=== PATIENT | female | born 1985 | race Caucasian/White ===

== ENCOUNTER 2023-12-02 14:19 | Inpatient (IN) | payer OTHER ==
--- NOTE | 2023-12-02 14:45 | ED ---
General Adult HPI - General Source: patient, family, RN notes reviewed Mode of arrival: wheelchair Limitations: no limitations <Marcelle Martin - Last Filed: 12/02/23 14:44> <Arik Soto - Last Filed: 12/02/23 21:20> - General Chief complaint: Shortness of Breath Stated complaint: congested and vomiting Time Seen by Provider: 12/02/23 14:44 - History of Present Illness Initial comments: 38-year-old female presents to the emergency department for evaluation of cough, congestion x 2 days. Family with patient notes that she has been wheezing and more short of breath than usual. (Marcelle Martin) I did review the above information I do agree that the patient has had a cough and congestion for the past 2 days perhaps even longer she been noted to be wheezing and more short of breath than usual. No overt fevers chills sweats there is a question whether she may have a UTI there was some blood noted in her diaper. Patient does not have menses. (Arik Soto) - Related Data Allergies Allergy/AdvReac Type Severity Reaction Status Date / Time No Known Allergies Allergy Verified 12/02/23 14:25 Review of Systems ROS Other: All systems not noted in ROS Statement are negative. <Marcelle Martin - Last Filed: 12/02/23 14:44> ROS Other: All systems not noted in ROS Statement are negative. <Arik Soto - Last Filed: 12/02/23 21:20> ROS Statement: Those systems with pertinent positive or pertinent negative responses have been documented in the HPI. Past Medical History Additional Past Medical History / Comment(s): delep[mentally delayed chronic bronchitis Additional Past Surgical History / Comment(s): oral surgery <Marcelle Martin - Last Filed: 12/02/23 14:44> General Exam Limitations: no limitations <Marcelle Martin - Last Filed: 12/02/23 14:44> <Arik Soto - Last Filed: 12/02/23 21:20> - General Exam Comments Initial Comments: Visual Physical Exam Vital signs reviewed General: Well-appearing, nontoxic, no acute distress. Head: Normocephalic, atraumatic Eyes: PERRLA, EOMI ENT: Airway patent Chest: Nonlabored breathing Skin: No visual rash, normal skin tone Neuro: Alert and oriented 3 Musculoskeletal: No gross abnormalities (Marcelle Martin) This is an awake and alert female who demonstrates stigmata of developmental delay she is awake and alert in no acute distress. HEENT exam normocephalic atraumatic PERRL and white counts have a clear oropharynx reveals dry oral mucosa nonspecific findings on the examination of the ears nose and throat otherwise. Neck supple no stridor JVD or bruits chest lungs reveal diminished breath sounds bilaterally no definitive crepitation or rales or rhonchi. Heart regular on my initial examination heart rate 105. Abdomen soft nontender no pulsatile masses. Extremities bilaterally present and symmetric. Integument a ppears to be intact neuroexam cranial nerves II through XII are grossly intact patient does again demonstrate developmental delay. (Arik Soto) Course Vital Signs 12/02/23 12/02/23 12/02/23 14:22 15:56 16:15 Temperature 98.8 F Pulse Rate 119 H 112 H 106 H Respiratory 26 H Rate Blood Pressure 113/57 O2 Sat by Pulse 90 L Oximetry 12/02/23 12/02/23 12/02/23 17:10 17:20 18:30 Temperature 101.1 F H Pulse Rate Respiratory 24 Rate Blood Pressure O2 Sat by Pulse 89 L Oximetry 12/02/23 12/02/23 19:40 21:06 Temperature 99.4 F Pulse Rate 120 H 108 H Respiratory 30 H 24 Rate Blood Pressure 112/91 O2 Sat by Pulse 91 L 93 L Oximetry EKG Findings - EKG Results: EKG: interpreted by ERMD (Sinus tachycardia rate 116 LA interval 135 QRS duration 78 QT/QTc 268/337) <Arik Soto - Last Filed: 12/02/23 21:20> Medical Decision Making <Marcelle Martin - Last Filed: 12/02/23 14:44> - Lab Data Result diagrams: 12/02/23 18:31 12/02/23 17:11 <Arik Soto - Last Filed: 12/02/23 21:20> - Medical Decision Making Quick note preformed and electronically signed by Marcelle Martin PA-C (Ramya Martin) I did discuss findings with the patient's family also with Dr. Power the patient demonstrates evidence of UTI evidence of right lower lobe infiltrate on chest x-ray and CT no evidence of PE however noted. Patient will be admitted with pulmonary medicine consultation. Patient has seen Dr. Hermosillo in the past. Was pt. sent in by a medical professional or institution (, ERICKA, FIRE EXTINGUISHER MECHANIC, urgent care, hospital, or fdc...) When possible be specific @ -No Did you speak to anyone other than the patient for history (EMS, parent, family, police, friend...)? What history was obtained from this source @ -Family Did you review nursing and triage notes (agree or disagree)? Why? @ -I reviewed and agree with nursing and triage notes Were old charts reviewed (outside hosp., previous admission, EMS record, old EKG, old radiological studies, urgent care reports/EKG's, fdc records)? Report findings @ -Old charts were reviewed Differential Diagnosis (chest pain, altered mental status, abdominal pain women, abdominal pain men, vaginal bleeding, weakness, fever, dyspnea, syncope, headache, dizziness, GI bleed, back pain, seizure, CVA, palpatations, mental health, musculoskeletal)? @ -Camila, UTI EKG interpreted by me (3pts min.). @ -As above EKG interpreted by me sinus tachycardia rate of 116 parable 135 QRS duration 78 QT/QTc 268/[address] configuration the marked amount of artifact present X-rays interpreted by me (1pt min.). @ -Chest x-ray interpreted by me increased basilar markings especially on the right CT interpreted by me (1pt min.). @ -ET angio of the chest no evidence of PE there is increased right lower lobe markings however pneumonia considered U/S interpreted by me (1pt. min.). @ -None done What testing was considered but not performed or refused? (CT, X-rays, U/S, labs)? Why? @ -None What meds were considered but not given or refused? Why? @ -None Did you discuss the management of the patient with other professionals (prof reilly i.e. , ERICKA, FI[employer] EXTINGUISHER MECHANIC, lab, RT, psych nurse, social media strategist, ear machine operator, teacher, landcare officer, disability case manager)? Give summary @ -Dr. Power Was smoking cessation discussed for >3mins.? @ -No Was critical care preformed (if so, how long)? @ -No Were there social determinants of health that impacted care today? How? (Homelessness, low income, unemployed, alcoholism, drug addiction, transportation, low edu. Level, literacy, decrease access to med. care, [facility], rehab)? @ -Developmental delay Was there de-escalation of care discussed even if they declined (Discuss DNR or withdrawal of care, Hospice)? DNR status @ -No What co-morbidities impacted this encounter? (DM, HTN, Smoking, COPD, CAD, Ca ncer, CVA, ARF, Chemo, Hep., AIDS, mental health diagnosis, sleep apnea, morbid obesity)? @ -History of developmental delay, chronic bronchitis Was patient admitted / discharged? Hospital course, mention meds given and route, prescriptions, significant lab abnormalities, going to OR and other perti nent info. @ -Hospital course was admitted Undiagnosed new problem with uncertain prognosis? @ -No Drug Therapy requiring intensive monitoring for toxicity (Heparin, Nitro, Insulin, Cardizem)? @ -No Were any procedures done? @ -No Diagnosis/symptom? @ -Acute bronchospasm, chronic bronchitis, dyspnea, right lower lobe pneumonia, UTI Acute, or Chronic, or Acute on Chronic? @ -Acute Uncomplicated (without systemic symptoms) or Complicated (systemic symptoms)? @ -Complicated Side effects of treatment? @ -No Exacerbation, Progression, or Severe Exacerbation? @ -No Poses a threat to life or bodily function? How? (Chest pain, [place], [place], pneumonia, PE, COPD, DKA, ARF, appy, cholecystitis, CVA, Diverticulitis, Homicidal, Suicidal, threat to staff... and all critical care pts) @ -Potential, bronchospasm, bronchitis, UTI, pneumonia (Arik Soto) - Lab Data Lab Results 12/02/23 12/02/23 12/02/23 Range/Units 14:29 17:11 17:11 WBC (3.8-10.6) k/uL RBC (3.80-5.40) m/uL Hgb (11.4-16.0) gm/dL Hct (34.0-46.0) % MCV (80.0-100.0) fL MCH (25.0-35.0) pg MCHC (31.0-37.0) g/dL RDW (11.5-15.5) % Plt Count (150-450) k/uL MPV Neutrophils % % Lymphocytes % % Monocytes % % Eosinophils % % Basophils % % Neutrophils # (1.3-7.7) k/uL Lymphocytes # (1.0-4.8) k/uL Monocytes # (0-1.0) k/uL Eosinophils # (0-0.7) k/uL Basophils # (0-0.2) k/uL D-Dimer (<0.60) mg/L FEU Sodium 140 (137-145) mmol/L Potassium 3.5 (3.5-5.1) mmol/L Chloride 102 (98-107) mmol/L Carbon Dioxide 28 (22-30) mmol/L Anion Gap 10 mmol/L BUN 15 (7-17) mg/dL Creatinine 0.98 (0.52-1.04) mg/dL Est GFR (CKD-EPI)AfAm 86 (>60 ml/min/1.73 sqM) Est GFR (CKD-EPI)NonAf 74 (>60 ml/min/1.73 sqM) Glucose 115 H (74-99) mg/dL Calcium 8.6 (8.4-10.2) mg/dL Magnesium 1.9 (1.6-2.3) mg/dL Total Bilirubin 0.6 (0.2-1.3) mg/dL AST 82 H (14-36) U/L ALT 90 H (4-34) U/L Alkaline Phosphatase 116 (38-126) U/L Creatine Kinase 99 (30-135) U/L Troponin I <0.012 (0.000-0.034) ng/mL NT-Pro-B Natriuret Pep 215 pg/mL Total Protein 6.2 L (6.3-8.2) g/dL Albumin 3.5 (3.5-5.0) g/dL Urine Color Urine Appearance (Clear) Urine pH (5.0-8.0) Ur Specific [place] (1.001-1.035) Urine Protein (Negative) Urine Glucose (UA) (Negative) Urine Ketones (Negative) Urine Blood (Negative) Urine Nitrite (Negative) Urine Bilirubin (Negative) Urine Urobilinogen (<2.0) mg/dL Ur Leukocyte Esterase (Negative) Urine RBC (0-5) /hpf Urine WBC (0-5) /hpf Urine WBC Clumps (None) /hpf Urine Bacteria (None) /hpf Urine Mucus (None) /hpf Urine HCG, Qual (Not Detectd) Influenza Type A (PCR) Not Detected (Not Detectd) Influenza Type B (PCR) Not Detected (Not Detectd) RSV (PCR) Not Detected (Not Detectd) SARS-CoV-2 (PCR) Not Detected (Not Detectd) 12/02/23 12/02/23 12/02/23 Range/Units 17:11 17:22 17:22 WBC (3.8-10.6) k/uL RBC (3.80-5.40) m/uL Hgb (11.4-16.0) gm/dL Hct (34.0-46.0) % MCV (80.0-100.0) fL MCH (25.0-35.0) pg MCHC (31.0-37.0) g/dL RDW (11.5-15.5) % Plt Count (150-450) k/uL MPV Neutrophils % % Lymphocytes % % Monocytes % % Eosinophils % % Basophils % % Neutrophils # (1.3-7.7) k/uL Lymphocytes # (1.0-4.8) k/uL Monocytes # (0-1.0) k/uL Eosinophils # (0-0.7) k/uL Basophils # (0-0.2) k/uL D-Dimer 1.34 H (<0.60) mg/L FEU Sodium (137-145) mmol/L Potassium (3.5-5.1) mmol/L Chloride (98-107) mmol/L Carbon Dioxide (22-30) mmol/L Anion Gap mmol/L BUN (7-17) mg/dL Creatinine (0.52-1.04) mg/dL Est GFR (CKD-EPI)AfAm (>60 ml/min/1.73 sqM) Est GFR (CKD-EPI)NonAf (>60 ml/min/1.73 sqM) Glucose (74-99) mg/dL Calcium (8.4-10.2) mg/dL Magnesium (1.6-2.3) mg/dL Total Bilirubin (0.2-1.3) mg/dL AST (14-36) U/L ALT (4-34) U/L Alkaline Phosphatase (38-126) U/L Creatine Kinase (30-135) U/L Troponin I (0.000-0.034) ng/mL NT-Pro-B Natriuret Pep pg/mL Total Protein (6.3-8.2) g/dL Albumin (3.5-5.0) g/dL Urine Color Yellow Urine Appearance Cloudy H (Clear) Urine pH 6.5 (5.0-8.0) Ur Specific [place] 1.020 (1.001-1.035) Urine Protein 2+ H (Negative) Urine Glucose (UA) Negative (Negative) Urine Ketones 1+ H (Negative) Urine Blood Small H (Negative) Urine Nitrite Positive H (Negative) Urine Bilirubin Negative (Negative) Urine Urobilinogen 6.0 (<2.0) mg/dL Ur Leukocyte Esterase Large H (Negative) Urine RBC 19 H (0-5) /hpf Urine WBC >182 H (0-5) /hpf Urine WBC Clumps Occasional H (None) /hpf Urine Bacteria Many H (None) /hpf Urine Mucus Few H (None) /hpf Urine HCG, Qual Not Detected (Not Detectd) Influenza Type A (PCR) (Not Detectd) Influenza Type B (PCR) (Not Detectd) RSV (PCR) (Not Detectd) SARS-CoV-2 (PCR) (Not Detectd) 12/02/23 Range/Units 18:31 WBC 12.0 H (3.8-10.6) k/uL RBC 4.54 (3.80-5.40) m/uL Hgb 13.0 (11.4-16.0) gm/dL Hct 41.3 (34.0-46.0) % MCV 90.8 (80.0-100.0) fL MCH 28.6 (25.0-35.0) pg MCHC 31.5 (31.0-37.0) g/dL RDW 13.3 (11.5-15.5) % Plt Count 413 (150-450) k/uL MPV 7.6 Neutrophils % 69 % Lymphocytes % 24 % Monocytes % 4 % Eosinophils % 0 % Basophils % 0 % Neutrophils # 8.3 H (1.3-7.7) k/uL Lymphocytes # 2.9 (1.0-4.8) k/uL Monocytes # 0.5 (0-1.0) k/uL Eosinophils # 0.0 (0-0.7) k/uL Basophils # 0.0 (0-0.2) k/uL D-Dimer (<0.60) mg/L FEU Sodium (137-145) mmol/L Potassium (3.5-5.1) mmol/L Chloride (98-107) mmol/L Carbon Dioxide (22-30) mmol/L Anion Gap mmol/L BUN (7-17) mg/dL Creatinine (0.52-1.04) mg/dL Est GFR (CKD-EPI)AfAm (>60 ml/min/1.73 sqM) Est GFR (CKD-EPI)NonAf (>60 ml/min/1.73 sqM) Glucose (74-99) mg/dL Calcium (8.4-10.2) mg/dL Magnesium (1.6-2.3) mg/dL Total Bilirubin (0.2-1.3) mg/dL AST (14-36) U/L ALT (4-34) U/L Alkaline Phosphatase (38-126) U/L Creatine Kinase (30-135) U/L Troponin I (0.000-0.034) ng/mL NT-Pro-B Natriuret Pep pg/mL Total Protein (6.3-8.2) g/dL Albumin (3.5-5.0) g/dL Urine Color Urine Appearance (Clear) Urine pH (5.0-8.0) Ur Specific [place] (1.001-1.035) Urine Protein (Negative) Urine Glucose (UA) (Negative) Urine Ketones (Negative) Urine Blood (Negative) Urine Nitrite (Negative) Urine Bilirubin (Negative) Urine Urobilinogen (<2.0) mg/dL Ur Leukocyte Esterase (Negative) Urine RBC (0-5) /hpf Urine WBC (0-5) /hpf Urine WBC Clumps (None) /hpf Urine Bacteria (None) /hpf Urine Mucus (None) /hpf Urine HCG, Qual (Not Detectd) Influenza Type A (PCR) (Not Detectd) Influenza Type B (PCR) (Not Detectd) RSV (PCR) (Not Detectd) SARS-CoV-2 (PCR) (Not Detectd) Disposition <Marcelle Martin - Last Filed: 12/02/23 14:44> Time of Disposition: 20:30 Decision Date: 12/02/23 Decision Time: 20:30 <Arik Soto - Last Filed: 12/02/23 21:20> Clinical Impression: Right lower lobe pneumonia, Acute urinary tract infection, Dyspnea, Febrile illness, acute, Hypoxemia Disposition: ADMITTED IP TO THIS [facility] Condition: Fair Referrals: Genevieve Brooks MD [Primary Care Provider] - 1-2 days
--- NOTE | 2023-12-02 15:12 | XR ---
EXAMINATION TYPE: XR chest 2V DATE OF EXAM: 12/02/2023 3:07 PM CLINICAL INDICATION:Female, 38 years old with history of short of breath; PHH COMPARISON: None TECHNIQUE: XR chest 2V Frontal and lateral views of the chest. FINDINGS: Lungs/Pleura: Bibasilar hazy airspace opacities are appreciated. No evidence of pneumothorax or pleur al effusion Pulmonary vascularity: Unremarkable. Heart/mediastinum: Cardiomediastinal silhouette is unremarkable. Musculoskeletal: No acute osseous pathology. IMPRESSION: Bibasilar airspace disease, most likely related to infectious/inflammatory process.
[2023-12-02] MEDS: IPRATROPIUM-ALBUTEROL 3 ML NEB INHALATION STA (15:56)
[2023-12-02 18:02] LABS: ALT 90 U/L (4-34); AST 82 U/L (14-36); African American GFR (CKD) 86 (>60 ml/min/1.73 sqM); Albumin 3.5 g/dL (3.5-5.0); Alkaline Phosphatase 116 U/L (38-126); Anion Gap 10 mmol/L; Blood Urea Nitrogen 15 mg/dL (7-17); Calcium 8.6 mg/dL (8.4-10.2); Carbon Dioxide 28 mmol/L (22-30); Chloride 102 mmol/L (98-107); Creatine Kinase 99 U/L (30-135); Glucose 115 mg/dL (74-99); Magnesium 1.9 mg/dL (1.6-2.3); Non-African American GFR(CKD) 74 (>60 ml/min/1.73 sqM); Potassium 3.5 mmol/L (3.5-5.1); Sodium 140 mmol/L (137-145); Total Bilirubin 0.6 mg/dL (0.2-1.3); Total Protein 6.2 g/dL (6.3-8.2)
[2023-12-02 18:04] LABS: Appearance,Urine Cloudy (Clear); Bacteria,Urine Many /hpf; Bilirubin,Urine Negative (Negative); Blood,Urine Small (Negative); Color,Urine Yellow; Glucose,Urine (UA) Negative (Negative); Ketones,Urine 1+ (Negative); Leukocyte Esterase,Urine Large (Negative); Mucus,Urine Few /hpf; Nitrite,Urine Positive (Negative); PH, Urine 6.5 (5.0-8.0); Protein,Urine 2+ (Negative); RBC,Urine 19 /hpf (0-5); WBC,Urine >182 /hpf (0-5)
[2023-12-02 18:07] LABS: NT-Pro-B-Type Natriuretic Pept 215 pg/mL
[2023-12-02 18:52] LABS: Basophils % (A) 0 %; Eosinophils % (A) 0 %; HCT 41.3 % (34.0-46.0); Lymphocytes # (A) 2.9 k/uL (1.0-4.8); Lymphocytes % (A) 24 %; MCH 28.6 pg (25.0-35.0); MCHC 31.5 g/dL (31.0-37.0); MCV 90.8 fL (80.0-100.0); Mean Platelet Volume 7.6; Monocytes # (A) 0.5 k/uL (0-1.0); Monocytes % (A) 4 %; Neutrophils # (A) 8.3 k/uL (1.3-7.7); Neutrophils % (A) 69 %; Platelet Count 413 k/uL (150-450); RBC 4.54 m/uL (3.80-5.40); RDW 13.3 % (11.5-15.5)
[2023-12-02] MEDS: ACETAMINOPHEN TAB 500 MG TAB PO STA (19:42)
[2023-12-02] MEDS: cefTRIAXone IN SWFI 1,000 MG/10 ML SYRINGE IVP STA (20:02)
--- NOTE | 2023-12-02 20:49 | CT ---
EXAMINATION TYPE: CT angio chest CT DLP: 166.2 mGycm, Automated exposure control for dose reduction was used. DATE OF EXAM: 12/02/2023 7:36 PM COMPARISON: Same day chest x-ray CLINICAL INDICATION:Female, 38 years old with history of PE suspected; SOB, positive dimer TECHNIQUE/CONTRAST: CTA scan of the thorax is performed with IV Contrast, patient injected with 45 cc mL of Isovue 300, M IP images are created and reviewed these are created on a separate workstation.. FINDINGS: There is adequate contrast bolus and timing. Examination is degraded by motion artifact. PULMONARY ARTERIES: There is no evidence for a filling defect within the pulmonary vasculature to sug gest acute pulmonary embolism. Pulmonary trunk is normal in size. Trunk measures 2.1 CM. HEART: Mild cardiomegaly. No appreciable coronary calcifications. Pericardial fat is prominent witho ut pericardial effusion. AORTA: Minimal atherosclerotic disease. Ascending aorta is 2.6 CM, tapering along the arch. Descendi ng is 1.4 CM. Aorta is considered mildly ectatic in its ascending segment. LOWER NECK: No significant findings. Thyroid not well seen. MEDIASTINUM: No evidence of mediastinal lymph node enlargement. SOFT TISSUES/LYMPH NODES: Unremarkable chest wall soft tissues. No axillary adenopathy. LUNGS/ PLEURA: There is mosaic attenuation of the lungs in some areas may suggest air trapping. There are reticulonodular opacities and tree-in-bud pattern throughout much of the right lung, with a more consolidative small opacity seen in the right lung base posteromedially; the superior aspect of this has a more focal nodular appearance measuring up to 2.1 cm axially. There are lesser tree-in-bud opa cities scattered throughout the left lung, and mild reticulonodular infiltrate in the left lower lobe . No sizable effusion or pneumothorax. AIRWAY: Central airways appear patent. The right lobar branches taper distally and disappear in some areas, likely due to bronchial secretions/debris. Similar findings on the left. MUSCULOSKELETAL: Overall mild/moderate degenerative changes of the spine with a moderately prominent levocurvature throughout and straightening of the normal kyphosis. Mild superior end plate height los s at T8 and T10, appearance favors chronic without fracture lucency seen. Heterogeneous appearance th roughout the T9 vertebral body without evidence of compression fracture. Otherwise, no lytic/blastic lesions are seen. UPPER ABDOMEN: Fairly symmetric phase enhancement of the kidneys and possible small sliding hiatal he rnia. No acute abnormality. Mildly thickened adrenals. IMPRESSION: 1. No evidence of pulmonary embolism. 2. Patchy consolidative opacities at the right lung base, plus scattered tree-in-bud opacities throu ghout the lungs bilaterally, likely due to infectious/inflammatory process. Include TB and other infe ctious agents in the differential. 3. Heterogeneous appearance of the T9 vertebral body, of uncertain cause. Metastasis is possible. Co rrelation with history, MRI and/or bone scan may be of benefit. 4. Cardiomegaly without evidence of failure.
[2023-12-02] MEDS ORDERED: PNEUMONIA PROTOCOL UTILIZED 1 EACH MISC PO PRN (21:21)
[2023-12-02] MEDS: IPRATROPIUM-ALBUTEROL 3 ML NEB INHALATION PRN (21:35)
[2023-12-02] MEDS: SODIUM CHLORIDE 0.9% 1,000 ML IV SCH (21:39)
[2023-12-02] MEDS: AZITHROMYCIN 500 MG in SODIUM CHLORIDE 0.9% 250 ML IVPB STA (21:40)
[2023-12-03] MEDS: QUEtiapine 25 MG TAB PO STA ×2 (05:51→09:15)
[2023-12-03] MEDS: ACETAMINOPHEN TAB 325 MG TAB PO PRN (09:15)
[2023-12-03] MEDS: HEPARIN SODIUM,PORCINE 5,000 UNIT/ML 1 ML VIAL SQ SCH (09:16)
[2023-12-03] MEDS: AZITHROMYCIN 500 MG TAB PO SCH (09:17)
[2023-12-03] MEDS: FAMOTIDINE 20 MG/2 ML VIAL IV SCH (09:18)
[2023-12-03] MEDS ORDERED: NALOXONE 0.4 MG/ML 1 ML VIAL IV PRN (11:01)
--- NOTE | 2023-12-03 11:14 | XR ---
EXAMINATION TYPE: XR chest 1V portable DATE OF EXAM: 12/03/2023 COMPARISON: 12/02/2023 INDICATION: Pneumonia TECHNIQUE: Single frontal view of the chest is obtained. FINDINGS: The heart size is mildly prominent. The pulmonary vasculature is normal. Some mild underlying alveolar type infiltrate may be present. Follow-up is recommended. IMPRESSION: 1. Persistence of punctate alveolar type infiltrate. Continued Follow-up is recommended.
[2023-12-03 12:01] LABS: Basophils % (A) 0 %; Eosinophils % (A) 0 %; HGB 11.5 gm/dL (11.4-16.0); Lymphocytes # (A) 2.6 k/uL (1.0-4.8); Lymphocytes % (A) 26 %; MCH 29.5 pg (25.0-35.0); MCHC 32.1 g/dL (31.0-37.0); MCV 91.9 fL (80.0-100.0); Monocytes # (A) 0.4 k/uL (0-1.0); Monocytes % (A) 4 %; Neutrophils # (A) 6.7 k/uL (1.3-7.7); Neutrophils % (A) 67 %; Platelet Count 337 k/uL (150-450); RBC 3.92 m/uL (3.80-5.40); RDW 13.3 % (11.5-15.5); WBC 9.9 k/uL (3.8-10.6)
[2023-12-03] MEDS: LORazepam 2 MG/ML INJ IV PRN (12:16)
[2023-12-03] MEDS: PIPERACILLIN-TAZOBACTAM 3.375 GM in SODIUM CHLORIDE 0.9% 100 ML IVPB SCH (12:16)
[2023-12-03 12:36] LABS: ALT 58 U/L (4-34); AST 40 U/L (14-36); African American GFR (CKD) >90 (>60 ml/min/1.73 sqM); Albumin/Globulin Ratio 1.2; Alkaline Phosphatase 98 U/L (38-126); Anion Gap 8 mmol/L; Blood Urea Nitrogen 14 mg/dL (7-17); Calcium 8.4 mg/dL (8.4-10.2); Carbon Dioxide 25 mmol/L (22-30); Chloride 110 mmol/L (98-107); Globulin 2.5 g/dL; Glucose 165 mg/dL (74-99); Non-African American GFR(CKD) 80 (>60 ml/min/1.73 sqM); Potassium 3.3 mmol/L (3.5-5.1); Sodium 143 mmol/L (137-145); Total Bilirubin 0.4 mg/dL (0.2-1.3); Total Protein 5.5 g/dL (6.3-8.2)
[2023-12-03 12:43] LABS: HCG,Qualitative Serum Not Detected
--- NOTE | 2023-12-03 13:02 | P.HPIM ---
History of Present Illness H&P Date: 12/03/23 Chief Complaint: Shortness of breath, * 38-year-old patient with past medical history significant for developmental delay, presents to the emergency department with complaints of cough, congestion, shortness of breath and wheezing. * Initiated in ER including a CT chest which was negative for pulm embolism however patchy consolidation and opacity was noted at the right lung base. * Workup initiated in ER included CBC showed WBC count of 12,000, platelet count of 413, D-dimer 1.34 serum chemistry showed sodium 140 potassium 3.5 chloride 102 BUN 15 creatinine 0.98 glucose 115 ALT of 90 AST of 82 * Procalcitonin 0.16 * Urinalysis obtained showed significant amount of WBC many bacteria urine test negative * Patient tested negative for influenza RSV and COVID * she admitted to medical floor for treatment of pneumonia and UTI * History obtained from parents at bedside REVIEW OF SYSTEMS: Cough, wheezing, shortness of breath, agitation disorientation CONSTITUTIONAL: No fever, no malaise, no fatigue. CARDIOVASCULAR: No chest pain, orthopnea, PND, no palpitations, no syncope. PULMONARY: Cough, wheezing, shortness of breath GASTROINTESTINAL: No diarrhea, no nausea, no vomiting, no abdominal pain. NEUROLOGICAL: No headaches, no weakness, no numbness. HEMATOLOGICAL: Denies any bleeding or petechiae. GENITOURINARY: Denies any burning micturition, frequency, or urgency. MUSCULOSKELETAL/RHEUMATOLOGICAL: Denies any joint pain, swelling, or any muscle pain. PHYSICAL EXAMINATION: GENERAL: The patient is alert and oriented x o, ill appearance, agitated, disoriented HEENT: Pupils are round and equally reacting to light. EOMI. CARDIOVASCULAR: S1 and S2 present. Tachycardia PULMONARY: Expiratory wheezes audible, patient disoriented agitated tachypneic ABDOMEN: Soft, nontender, nondistended, normoactive bowel sounds. No palpable organomegaly. MUSCULOSKELETAL: No joint swelling or deformity. EXTREMITIES: No cyanosis, clubbing, or pedal edema. NEUROLOGICAL: Disoriented Past Medical History Past Medical History: Thyroid Disorder Additional Past Medical History / Comment(s): delep[mentally delayed, chronic bronchitis, hypothyroid History of Any Multi-Drug Resistant Organisms: None Reported Additional Past Surgical History / Comment(s): oral surgery Past Anesthesia/Blood Transfusion Reactions: No Reported Reaction Additional Psychological History / Comment(s): developmentally delayed Smoking Status: Never smoker - Past Family History Mother Family Medical History: No Reported History Medications and Allergies Home Medications Medication Instructions Recorded Confirmed Type Levothyroxine Sodium [Synthroid] 75 mcg PO DAILY 12/03/23 12/03/23 History Allergies Allergy/AdvReac Type Severity Reaction Status Date / Time No Known Allergies Allergy Verified 12/03/23 08:42 Physical Exam Vitals: Vital Signs Temp Pulse Pulse Resp BP BP Pulse Ox 12/03/23 09:16 117 H 12/03/23 08:00 101.0 F H 117 H 19 108/52 92 L 12/03/23 05:59 96 94 L 12/03/23 01:20 98.7 F 94 16 111/65 96 12/03/23 00:39 94 L 12/03/23 00:15 117 H 24 139/54 90 L 12/02/23 22:18 107 H 22 102/62 92 L 12/02/23 21:45 115 H 12/02/23 21:35 112 H 12/02/23 21:06 99.4 F 108 H 24 93 L 12/02/23 19:40 120 H 30 H 112/91 91 L 12/02/23 18:30 101.1 F H 12/02/23 17:20 24 12/02/23 17:10 89 L 12/02/23 16:15 106 H 12/02/23 15:56 112 H 12/02/23 14:22 98.8 F 119 H 26 H 113/57 90 L Intake and Output 12/02/23 12/03/23 12/03/23 22:59 06:59 14:59 Intake Total 600 Balance 600 Intake: Intake, IV Titration 600 Amount Sodium Chloride 0.9% 1, 600 000 ml @ 100 mls/hr IV . Q10H [facility] Rx#:[id number] Other: Voiding Method Diaper Diaper Incontinent Incontinent # Voids 1 Weight 43.091 kg Results CBC & Chem 7: 12/03/23 11:19 12/03/23 11:19 Labs: Abnormal Lab Results - Last 24 Hours (Table) 12/02/23 12/02/23 12/02/23 Range/Units 17:11 17:11 17:11 WBC (3.8-10.6) k/uL Neutrophils # (1.3-7.7) k/uL D-Dimer 1.34 H (<0.60) mg/L FEU Glucose 115 H (74-99) mg/dL AST 82 H (14-36) U/L ALT 90 H (4-34) U/L Total Protein 6.2 L (6.3-8.2) g/dL Procalcitonin 0.16 H (0.02-0.09) ng/mL Urine Appearance (Clear) Urine Protein (Negative) Urine Ketones (Negative) Urine Blood (Negative) Urine Nitrite (Negative) Ur Leukocyte Esterase (Negative) Urine RBC (0-5) /hpf Urine WBC (0-5) /hpf Urine WBC Clumps (None) /hpf Urine Bacteria (None) /hpf Urine Mucus (None) /hpf 12/02/23 12/02/23 Range/Units 17:22 18:31 WBC 12.0 H (3.8-10.6) k/uL Neutrophils # 8.3 H (1.3-7.7) k/uL D-Dimer (<0.60) mg/L FEU Glucose (74-99) mg/dL AST (14-36) U/L ALT (4-34) U/L Total Protein (6.3-8.2) g/dL Procalcitonin (0.02-0.09) ng/mL Urine Appearance Cloudy H (Clear) Urine Protein 2+ H (Negative) Urine Ketones 1+ H (Negative) Urine Blood Small H (Negative) Urine Nitrite Positive H (Negative) Ur Leukocyte Esterase Large H (Negative) Urine RBC 19 H (0-5) /hpf Urine WBC >182 H (0-5) /hpf Urine WBC Clumps Occasional H (None) /hpf Urine Bacteria Many H (None) /hpf Urine Mucus Few H (None) /hpf Thrombosis Risk Factor Assmnt - Choose All That Apply Any of the Below Risk Factors Present?: No Other Risk Factors: No Other congenital or acquired thrombophilia - If yes, enter type in comment: No Thrombosis Risk Factor Assessment Level: Very Low Risk Assessment and Plan Assessment: Assessment and plan * Multifocal pneumonia * Urinary tract infection * Sepsis secondary to pneumonia and UTI * History of developmental delay * Transaminitis likely secondary to sepsis * In regards to multifocal pneumonia, chest CT chest reviewed, Recieved Rocephin and Azithromycin> transitioned to Zosyn >> Infectious disease >> pulmonary medicine consulted * Regards to urinary tract infection, blood cultures and urine cultures ordered continue patient on IV Zosyn * Regards to sepsis continue blood cultures continue with fluid resuscitation * In regards to transaminitis follow-up on liver profile * CODE STATUS is full code Time with Patient: Greater than 30
[2023-12-03] MEDS: SODIUM CHLORIDE 0.9% 500 ML 500 ML IV ONE (14:13)
[2023-12-03] MEDS: SODIUM CHLORIDE 0.9% 1,000 ML IV ONE (14:13)
--- NOTE | 2023-12-03 15:38 | P.CNPUL ---
History of Present Illness Consult date: 12/03/23 Requesting physician: Bentley Power Reason for consult: cough, abnormal CXR/CT Chief complaint: Shortness of breath, cough, congestion History of present illness: This is a 38-year-old female patient who was born with a developmental delay and has a history of hypothyroidism. She was noted to have increasing shortness of breath, cough and congestion and was brought into the emergency yet room yesterday by her family. She herself is nonverbal. She is quite restless and agitated. Chest x-ray revealed bibasilar airspace disease suspect infectious/inflammatory process. CT angiogram ruled out pulmonary embolism. There is patchy consolidative opacities of the right lung base, plus scattered tree-in-bud opacities throughout the lungs bilaterally, suspect infectious at this inflammatory process. Possible fluid volume overload. Evidence of cardiomegaly. Possible aspiration. White count 9.9. Hemoglobin 11.5. Platelets 337. Sodium 143. Potassium 3.3. Bicarb 25. BUN 14. Creatinine 0.93. Glucose 165. AST 40. ALT 58. Negative H CG. Procalcitonin 0.16. Urinalysis with positive nitrates high WBCs and many bacteria. Urine Legionella screen negative. Viral screen negative. He is seen today in consultation on the regular medical floor. Her family is at the bedside. She remains quite restless and agitated. She is pulling at things. Pulling her gown off. She is febrile with a temperature of 101.0. She is tachycardic. She is maintaining O2 saturations in the 90s on room air. Blood pressure stable. She has been initiated on ceftriaxone and azithromycin. Review of Systems ROS unobtainable: due to mental status Past Medical History Past Medical History: Thyroid Disorder Additional Past Medical History / Comment(s): delep[mentally delayed, chronic bronchitis, hypothyroid History of Any Multi-Drug Resistant Organisms: None Reported Additional Past Surgical History / Comment(s): oral surgery Past Anesthesia/Blood Transfusion Reactions: No Reported Reaction Additional Psychological History / Comment(s): developmentally delayed Smoking Status: Never smoker - Past Family History Mother Family Medical History: No Reported History Medications and Allergies Home Medications Medication Instructions Recorded Confirmed Type Levothyroxine Sodium [Synthroid] 75 mcg PO DAILY 12/03/23 12/03/23 History Allergies Allergy/AdvReac Type Severity Reaction Status Date / Time No Known Allergies Allergy Verified 12/03/23 08:42 Physical Exam Vitals: Vital Signs Temp Pulse Pulse Resp BP BP Pulse Ox 12/03/23 09:16 117 H 12/03/23 08:00 101.0 F H 117 H 19 108/52 92 L 12/03/23 05:59 96 94 L 12/03/23 01:20 98.7 F 94 16 111/65 96 12/03/23 00:39 94 L 12/03/23 00:15 117 H 24 139/54 90 L 12/02/23 22:18 107 H 22 102/62 92 L 12/02/23 21:45 115 H 12/02/23 21:35 112 H 12/02/23 21:06 99.4 F 108 H 24 93 L 12/02/23 19:40 120 H 30 H 112/91 91 L 12/02/23 18:30 101.1 F H 12/02/23 17:20 24 12/02/23 17:10 89 L 12/02/23 16:15 106 H 12/02/23 15:56 112 H Intake and Output 12/03/23 12/03/23 12/03/23 06:59 14:59 22:59 Intake Total 600 Balance 600 Intake: Intake, IV Titration 600 Amount Sodium Chloride 0.9% 1, 600 000 ml @ 100 mls/hr IV . Q10H [facility] Rx#:[id number] Other: Voiding Method Diaper Diaper Incontinent Incontinent # Voids 1 Weight 43.091 kg GENERAL EXAM: Alert, restless, agitated, nonverbal 38-year-old female, on room air, fairly comfortable in no apparent distress. HEAD: Normocephalic. EYES: Normal reaction of pupils, equal size. NOSE: Clear with pink turbinates. THROAT: No erythema or exudates. NECK: No masses, no JVD. CHEST: No chest wall deformity. LUNGS: Equal air entry with few scattered rhonchi. CVS: S1 and S2 normal with no audible murmur, regular rhythm. ABDOMEN: No hepatosplenomegaly, normal bowel sounds, no guarding or rigidity. SPINE: Kyphoscoliosis with skeletal abnormalities SKIN: No rashes CENTRAL NERVOUS SYSTEM: Unable to evaluate neurological status, tone is normal in all 4 extremities. EXTREMITIES: There is no peripheral edema. No clubbing, no cyanosis. Peripheral pulses are intact. Results - Laboratory Findings CBC and BMP: 12/03/23 11:19 12/03/23 11:19 PT/INR, D-dimer D-Dimer 1.34 mg/L FEU (<0.60) H 12/02/23 17:11 Abnormal lab findings: Abnormal Labs 12/02/23 12/02/23 12/02/23 17:11 17:11 17:11 WBC Neutrophils # D-Dimer 1.34 H Potassium Chloride Glucose 115 H Plasma Lactic Acid Parveen AST 82 H ALT 90 H Total Protein 6.2 L Albumin Procalcitonin 0.16 H Urine Appearance Urine Protein Urine Ketones Urine Blood Urine Nitrite Ur Leukocyte Esterase Urine RBC Urine WBC Urine WBC Clumps Urine Bacteria Urine Mucus 12/02/23 12/02/23 12/03/23 17:22 18:31 11:19 WBC 12.0 H Neutrophils # 8.3 H D-Dimer Potassium 3.3 L Chloride 110 H Glucose 165 H Plasma Lactic Acid Parveen AST 40 H ALT 58 H Total Protein 5.5 L Albumin 3.0 L Procalcitonin Urine Appearance Cloudy H Urine Protein 2+ H Urine Ketones 1+ H Urine Blood Small H Urine Nitrite Positive H Ur Leukocyte Esterase Large H Urine RBC 19 H Urine WBC >182 H Urine WBC Clumps Occasional H Urine Bacteria Many H Urine Mucus Few H 12/03/23 11:19 WBC Neutrophils # D-Dimer Potassium Chloride Glucose Plasma Lactic Acid Parveen 2.5 H* AST ALT Total Protein Albumin Procalcitonin Urine Appearance Urine Protein Urine Ketones Urine Blood Urine Nitrite Ur Leukocyte Esterase Urine RBC Urine WBC Urine WBC Clumps Urine Bacteria Urine Mucus - Diagnostic Findings Chest x-ray: image reviewed CT scan - chest: image reviewed Assessment and Plan Assessment: Shortness of breath, cough, congestion possibly related to community-acquired versus aspiration pneumonia versus fluid volume overload Urinary tract infection Altered mental status secondary to above with restlessness and increased agitation than normal according to her family Febrile illness secondary to above History of congenital developmental delay Hypothyroidism Plan: The patient was seen and evaluated Chest x-ray, CT angiogram, labs and medications reviewed Discontinue ceftriaxone and azithromycin Initiate Zosyn Initiate Ativan 0.5 mg IV every 6 hours Discontinue steroids Neurology consult We will continue to follow and make further recommendations based on her clin ical status I have personally seen and examined the patient, performed the documentation and the assessment and plan as written. Number of minutes spent on the visit: 20.
[2023-12-03] MEDS: methylPREDNISolone SOD SUCCI 40 MG/ML 1 ML VIAL IV SCH (16:27)
[2023-12-03] MEDS: predniSONE 20 MG TAB PO SCH (16:28)
[2023-12-03] MEDS: OLANZapine 10 MG VIAL IM STA (17:00)
[2023-12-03] MEDS ORDERED: OLANZapine 10 MG VIAL IM PRN (17:39)
--- NOTE | 2023-12-03 17:41 | P.CNNES ---
History of Present Illness Consult date: 12/03/23 Requesting physician: Brit Mccann Reason for Consult: developmental delay, with increased agitation History of Present Illness: This is a 38-year-old woman with a history of developmental delay was nonverbal presented emergency department because of cough, shortness of breath. History was obtained from the patient's parents were bedside as well as the patient's nurse. It seems the patient has to be acquired versus aspiration pneumonia and has acute UTI. It seems the patient has been more agitated. According to the mother patient has been having cough shortness of breath congestion for the last 3 weeks. As a result seems last few days she is more agitated aggressive and the mother states she's not like that that. She states that the patient's Developmental delay and is nonverbal at baseline. She requires a wheelchair and assistance for feeding. Some of the workup during his hospital visit consisted of: Initial AST is 82 and ALTs 90 and is trending down Possible left acid venous 2.5 Serum glucose is 115. Sodium is 140, calcium is 8.6, magnesium is 1.9 Urinalysis is leukocyte esterase was large, urine white blood cells more than 182, urine bacteria is many Review of Systems Review of system is limited with apparent positive and negative as per HPI. Past Medical History Past Medical History: Thyroid Disorder Additional Past Medical History / Comment(s): delep[mentally delayed, chronic bronchitis, hypothyroid History of Any Multi-Drug Resistant Organisms: None Reported Additional Past Surgical History / Comment(s): oral surgery Past Anesthesia/Blood Transfusion Reactions: No Reported Reaction Additional Psychological History / Comment(s): developmentally delayed Smoking Status: Never smoker - Past Family History Mother Family Medical History: No Reported History Medications and Allergies Home Medications Medication Instructions Recorded Confirmed Type Levothyroxine Sodium [Synthroid] 75 mcg PO DAILY 12/03/23 12/03/23 History Allergies Allergy/AdvReac Type Severity Reaction Status Date / Time No Known Allergies Allergy Verified 12/03/23 08:42 Physical Examination - Vital Signs Vital Signs: Vital Signs Temp Pulse Pulse Resp BP BP Pulse Ox 12/03/23 09:16 117 H 12/03/23 08:00 101.0 F H 117 H 19 108/52 92 L 12/03/23 05:59 96 94 L 12/03/23 01:20 98.7 F 94 16 111/65 96 12/03/23 00:39 94 L 12/03/23 00:15 117 H 24 139/54 90 L 12/02/23 22:18 107 H 22 102/62 92 L 12/02/23 21:45 115 H 12/02/23 21:35 112 H 12/02/23 21:06 99.4 F 108 H 24 93 L 12/02/23 19:40 120 H 30 H 112/91 91 L 12/02/23 18:30 101.1 F H Intake and Output 12/03/23 12/03/23 12/03/23 06:59 14:59 22:59 Intake Total 600 Balance 600 Intake: Intake, IV Titration 600 Amount Sodium Chloride 0.9% 1, 600 000 ml @ 100 mls/hr IV . Q10H [facility] Rx#:[id number] Other: Voiding Method Diaper Diaper Incontinent Incontinent # Voids 1 Weight 43.091 kg General: Patient is very restless and agitated. Neuro: Is extremely limited He is awake alert and she is a pulling on the mother's hand as well as a the nurses aides hands. Patient is very restless agitated. His nonverbal and is not following commands She's moving all extremities above gravity mostly upper is more the lowers. Results - Laboratory Findings CBC and BMP: 12/03/23 11:19 12/03/23 11:19 Abnormal Lab Findings: Abnormal Labs 12/02/23 12/02/23 12/02/23 17:11 17:11 17:11 WBC Neutrophils # D-Dimer 1.34 H Potassium Chloride Glucose 115 H Plasma Lactic Acid Parveen AST 82 H ALT 90 H Total Protein 6.2 L Albumin Procalcitonin 0.16 H Urine Appearance Urine Protein Urine Ketones Urine Blood Urine Nitrite Ur Leukocyte Esterase Urine RBC Urine WBC Urine WBC Clumps Urine Bacteria Urine Mucus 12/02/23 12/02/23 12/03/23 17:22 18:31 11:19 WBC 12.0 H Neutrophils # 8.3 H D-Dimer Potassium 3.3 L Chloride 110 H Glucose 165 H Plasma Lactic Acid Parveen AST 40 H ALT 58 H Total Protein 5.5 L Albumin 3.0 L Procalcitonin Urine Appearance Cloudy H Urine Protein 2+ H Urine Ketones 1+ H Urine Blood Small H Urine Nitrite Positive H Ur Leukocyte Esterase Large H Urine RBC 19 H Urine WBC >182 H Urine WBC Clumps Occasional H Urine Bacteria Many H Urine Mucus Few H 12/03/23 11:19 WBC Neutrophils # D-Dimer Potassium Chloride Glucose Plasma Lactic Acid Parveen 2.5 H* AST ALT Total Protein Albumin Procalcitonin Urine Appearance Urine Protein Urine Ketones Urine Blood Urine Nitrite Ur Leukocyte Esterase Urine RBC Urine WBC Urine WBC Clumps Urine Bacteria Urine Mucus Assessment and Plan Assessment: This is a 38-year-old woman with history of the mental delay, nonverbal and uses a wheelchair presents because of three-week history of increased shortness of breath cough congestion. She was found to have pneumonia as well as acute UTI. Neurologist consulted for agitation and the restlessness Delirium with agitation due to underlying infection (pneumonia, UTI and hospital induced) Shortness of breath with cough and congestion due to pneumonia Acute UTI likely History the developmental delay Nonverbal at baseline History of Hypothyroidism Plan: Patient received an order one time I the primary of Zyprexa 2.5 mg. I started the patient on Zyprexa 2.5 mg 4 times a day when necessary for agitation. I also started the patient on Seroquel 25 mg daily at bedtime and if needed can go up to 50 mg daily at bedtime. If possible avoid the restraints and sedation. Pulmonary team was consulted as well as ID team is consulted We'll defer the rest of the medical management to primary and other specialists The plan was discussed with the patient's parents as well as the nurse was at bedside Thank you for the consultation Time with Patient: Greater than 30
[2023-12-03] MEDS ORDERED: OLANZapine 10 MG VIAL IM SCH (18:00)
[2023-12-03] MEDS: POTASSIUM CHLORIDE 10 MEQ in WATER FOR INJECTION 1 100ML.BAG IVPB SCH (18:57)
[2023-12-03] MEDS: QUEtiapine 25 MG TAB PO SCH (20:17)
[2023-12-03] MEDS: FAMOTIDINE 20 MG TAB PO SCH (20:17)
--- NOTE | 2023-12-03 22:58 | P.CONS ---
History of Present Illness - Reason for Consult Consult date: 12/03/23 Sepsis, pneumonia UTI Requesting physician: Al Charles - Chief Complaint Fever increasing cough and vomiting x few days - History of Present Illness Patient is a 38-year-old female past medical history significant for developmental/mentally delayed hypothyroidism patient apparently did have a flu about 4 weeks ago the patient did have a high-grade fever has not been respiratory symptoms subsequently improved however the last few days patient seem to have increasing cough and congestion patient has been evaluated outpatient setting by her primary care physician and has been treated with the steroids without any improvement with worsening symptoms the patient has been brought into the hospital with the history provided by the parent at the bedside symptom has been mostly high-grade fever and also congested cough moderate to severe intensity however unable to cough up anything and also have multiple episodes of vomiting but no clear history of any diarrhea or abdominal pain patient on presentation to the hospital did have a temperature of 101.1 F and was febrile this morning as well patient was tachycardic mildly hypoxic but not hypotensive did have a white count of 12,000 creatinine was 0.93 UA has been positive urine for Legionella antigen was negative patient was started on ceftriaxone and Flagyl that has been switched over to Zosyn infectious disease was consulted for further management of antibiotic therapy patient did have a chest x-ray bibasilar airspace disease more likely related to infectious extremity process CT angiogram of the chest no evidence of PE patchy consolidative changes right lung base most information has been obtained from the parents at the bedside as the patient cannot provide any history Review of Systems positive points has been mentioned in HPI complete review could not be obtained because of his underlying mental status Past Medical History Past Medical History: Thyroid Disorder Additional Past Medical History / Comment(s): delep[mentally delayed, chronic bronchitis, hypothyroid History of Any Multi-Drug Resistant Organisms: None Reported Additional Past Surgical History / Comment(s): oral surgery Past Anesthesia/Blood Transfusion Reactions: No Reported Reaction Additional Psychological History / Comment(s): developmentally delayed Smoking Status: Never smoker - Past Family History Mother Family Medical History: No Reported History Medications and Allergies Home Medications Medication Instructions Recorded Confirmed Type Levothyroxine Sodium [Synthroid] 75 mcg PO DAILY 12/03/23 12/03/23 History Amoxic-Pot Clav 875-125Mg 1 each PO Q12HR 7 Days #14 tab 12/07/23 Rx [Augmentin 875-125] Famotidine [Pepcid] 20 mg PO BID tab 12/07/23 Rx Allergies Allergy/AdvReac Type Severity Reaction Status Date / Time No Known Allergies Allergy Verified 12/03/23 08:42 Physical Exam Vitals: Vital Signs Temp Pulse Pulse Resp BP BP Pulse Ox 12/03/23 09:16 117 H 12/03/23 08:00 101.0 F H 117 H 19 108/52 92 L 12/03/23 05:59 96 94 L 12/03/23 01:20 98.7 F 94 16 111/65 96 12/03/23 00:39 94 L 12/03/23 00:15 117 H 24 139/54 90 L 12/02/23 22:18 107 H 22 102/62 92 L 12/02/23 21:45 115 H 12/02/23 21:35 112 H 12/02/23 21:06 99.4 F 108 H 24 93 L 12/02/23 19:40 120 H 30 H 112/91 91 L 12/02/23 18:30 101.1 F H 12/02/23 17:20 24 12/02/23 17:10 89 L 12/02/23 16:15 106 H 12/02/23 15:56 112 H 12/02/23 14:22 98.8 F 119 H 26 H 113/57 90 L Intake and Output 12/02/23 12/03/23 12/03/23 22:59 06:59 14:59 Intake Total 600 Balance 600 Intake: Intake, IV Titration 600 Amount Sodium Chloride 0.9% 1, 600 000 ml @ 100 mls/hr IV . Q10H [facility] Rx#:[id number] Other: Voiding Method Diaper Diaper Incontinent Incontinent # Voids 1 Weight 43.091 kg GENERAL DESCRIPTION: Middle-aged female lying in bed, no distress. No tachypnea or accessory muscle of respiration use. HEENT: Shows Pallor , no scleral icterus. Oral mucous membrane is dry. NECK: Trachea central, no thyromegaly. LUNGS: Unlabored breathing. Coarse breath sounds bilaterally HEART: S1, S2, regular rate and rhythm. No loud murmur ABDOMEN: Soft, no tenderness , EXTREMITIES: No edema of feet. SKIN: No rash, no masses palpable. NEUROLOGICAL: The patient is awake, nonverbal orientation could not be determined Results CBC & Chem 7: 12/07/23 07:34 12/07/23 07:34 Labs: Abnormal Lab Results - Last 24 Hours (Table) 12/02/23 12/02/23 12/02/23 Range/Units 17:11 17:11 17:11 WBC (3.8-10.6) k/uL Neutrophils # (1.3-7.7) k/uL D-Dimer 1.34 H (<0.60) mg/L FEU Potassium (3.5-5.1) mmol/L Chloride (98-107) mmol/L Glucose 115 H (74-99) mg/dL Plasma Lactic Acid Parveen (0.7-2.0) mmol/L AST 82 H (14-36) U/L ALT 90 H (4-34) U/L Total Protein 6.2 L (6.3-8.2) g/dL Albumin (3.5-5.0) g/dL Procalcitonin 0.16 H (0.02-0.09) ng/mL Urine Appearance (Clear) Urine Protein (Negative) Urine Ketones (Negative) Urine Blood (Negative) Urine Nitrite (Negative) Ur Leukocyte Esterase (Negative) Urine RBC (0-5) /hpf Urine WBC (0-5) /hpf Urine WBC Clumps (None) /hpf Urine Bacteria (None) /hpf Urine Mucus (None) /hpf 12/02/23 12/02/23 12/03/23 Range/Units 17:22 18:31 11:19 WBC 12.0 H (3.8-10.6) k/uL Neutrophils # 8.3 H (1.3-7.7) k/uL D-Dimer (<0.60) mg/L FEU Potassium 3.3 L (3.5-5.1) mmol/L Chloride 110 H (98-107) mmol/L Glucose 165 H (74-99) mg/dL Plasma Lactic Acid Parveen (0.7-2.0) mmol/L AST 40 H (14-36) U/L ALT 58 H (4-34) U/L Total Protein 5.5 L (6.3-8.2) g/dL Albumin 3.0 L (3.5-5.0) g/dL Procalcitonin (0.02-0.09) ng/mL Urine Appearance Cloudy H (Clear) Urine Protein 2+ H (Negative) Urine Ketones 1+ H (Negative) Urine Blood Small H (Negative) Urine Nitrite Positive H (Negative) Ur Leukocyte Esterase Large H (Negative) Urine RBC 19 H (0-5) /hpf Urine WBC >182 H (0-5) /hpf Urine WBC Clumps Occasional H (None) /hpf Urine Bacteria Many H (None) /hpf Urine Mucus Few H (None) /hpf 12/03/23 Range/Units 11:19 WBC (3.8-10.6) k/uL Neutrophils # (1.3-7.7) k/uL D-Dimer (<0.60) mg/L FEU Potassium (3.5-5.1) mmol/L Chloride (98-107) mmol/L Glucose (74-99) mg/dL Plasma Lactic Acid Parveen 2.5 H* (0.7-2.0) mmol/L AST (14-36) U/L ALT (4-34) U/L Total Protein (6.3-8.2) g/dL Albumin (3.5-5.0) g/dL Procalcitonin (0.02-0.09) ng/mL Urine Appearance (Clear) Urine Protein (Negative) Urine Ketones (Negative) Urine Blood (Negative) Urine Nitrite (Negative) Ur Leukocyte Esterase (Negative) Urine RBC (0-5) /hpf Urine WBC (0-5) /hpf Urine WBC Clumps (None) /hpf Urine Bacteria (None) /hpf Urine Mucus (None) /hpf Assessment and Plan (1) Sepsis Status: Acute Code(s): A41.9 - SEPSIS, UNSPECIFIED ORGANISM SNOMED Code(s): 33912590 (2) Aspiration pneumonia Status: Acute Code(s): J69.0 - PNEUMONITIS DUE TO INHALATION OF FOOD AND VOMIT SNOMED Code(s): 538000819 Plan: 1patient presented hospital with sepsis in this patient who did have a fever elevated white count right-sided pneumonia in this patient significant vomiting high clinical suspicion for aspiration pneumonia rather than community-acquired pneumonia 2-we will try to obtain sputum for Gram stain culture if possible check a CRP and a procalcitonin 3-Zosyn 3.375 g should provide adequate antibiotic coverage Family bedside questions answered We will follow on clinical condition and cultures to further adjust medication if needed Thank you for this consultation we will follow the patient along with you Dictation was produced using [employer] dictation software. please excuse any grammatical, word or spelling errors. Time with Patient: Greater than 30
[2023-12-04] MEDS: LEVOTHYROXINE 75 MCG TAB PO SCH (06:33)
[2023-12-04 08:28] LABS: HCT 31.6 % (37.2-46.3); HGB 10.1 g/dL (12.0-15.0); MCH 28.4 pg (27.0-32.0); MCV 88.8 FL (80.0-97.0); Mean Platelet Volume 9.7 FL (9.5-12.2); NRBC Per 100 WBC 0.02 X 10*3/uL (0.00-0.01); Platelet Count 298 X 10*3/uL (140-440); RBC 3.56 X 10*6/uL (4.10-5.20); WBC 9.35 X 10*3/uL (4.50-10.00)
[2023-12-04 08:51] LABS: Blood Urea Nitrogen 6.3 mg/dL (9.0-27.0); Calcium 7.6 mg/dL (8.7-10.3); Carbon Dioxide 23.9 mmol/L (21.6-31.8); Chloride 112 mmol/L (96-109); Glucose 71 mg/dL (70-110); Potassium 3.6 mmol/L (3.5-5.5); Sodium 145 mmol/L (135-145)
--- NOTE | 2023-12-04 12:00 | P.PN ---
Subjective Progress Note Date: 12/04/23 * 38-year-old patient with past medical history significant for developmental delay, presents to the emergency department with complaints of cough, congestion, shortness of breath and wheezing. * Initiated in ER including a CT chest which was negative for pulm embolism however patchy consolidation and opacity was noted at the right lung base. * Workup initiated in ER included CBC showed WBC count of 12,000, platelet count of 413, D-dimer 1.34 serum chemistry showed sodium 140 potassium 3.5 chloride 102 BUN 15 creatinine 0.98 glucose 115 ALT of 90 AST of 82 * Procalcitonin 0.16 * Urinalysis obtained showed significant amount of WBC many bacteria urine test negative * Patient tested negative for influenza RSV and COVID * she admitted to medical floor for treatment of pneumonia and UTI * History obtained from parents at bedside * During the day patient remained agitated requiring soft restraints, neurology was consulted as well patient was started on as needed Zyprexa * 12/04/23: Patient seen and evaluated bedside, parents at bedside. Patient remains disoriented had been given Ativan, patient is resting comfortably. Review of system limited patient nonverbal per parents patient continues to remain agitated however after medicine she is comfortable PHYSICAL EXAMINATION: GENERAL: The patient is alert and oriented x o, ill appearance, agitated, disoriented. CARDIOVASCULAR: S1 and S2 present. Tachycardia PULMONARY: Expiratory wheezes audible, patient disoriented agitated tachypneic ABDOMEN: Soft, nontender, nondistended, normoactive bowel sounds. MUSCULOSKELETAL: No joint swelling or deformity. EXTREMITIES: No skin injury or trauma noted NEUROLOGICAL: Disoriented, exam limited secondary to lack of patient cooperation Assessment and plan * Multifocal pneumonia * Urinary tract infection * Sepsis secondary to pneumonia and UTI * History of developmental delay, nonverbal at baseline * Transaminitis likely secondary to sepsis * Hypothyroid * In regards to multifocal pneumonia, chest CT chest reviewed, Recieved Rocephin and Azithromycin> transitioned to Zosyn due to>> Infectious disease >> pulmonary medicine consulted * Regards to urinary tract infection, blood cultures and urine cultures ordered continue patient on IV Zosyn * Regards to sepsis , follow-up on blood cultures, continue with IV fluids * In regards to transaminitis follow-up on liver profile * Regards to delirium with acute agitation continue to use Zyprexa, appreciate input from neurology avoiding restraints * CODE STATUS is full code Objective - Vital Signs Vital signs: Vital Signs Temp 98.7 F 12/04/23 02:49 Pulse 86 12/04/23 02:49 Resp 20 12/04/23 02:49 BP 108/65 12/04/23 02:49 Pulse Ox 93 L 12/04/23 02:49 FiO2 Intake & Output 12/03/23 12/04/23 12/04/23 18:59 06:59 18:59 Intake Total 2600 420 Balance 2600 420 Intake: Intake, IV Titration 2600 Amount Piperacillin-Tazobactam 3 100 .375 gm In Sodium Chloride 0.9% 100 ml @ 25 mls/hr IVPB Q8H [facility] Rx#: [id number] Sodium Chloride 0.9% 1, 1000 000 ml @ 100 mls/hr IV . Q10H [facility] Rx#:[id number] Sodium Chloride 0.9% 1, 1000 000 ml @ 999 mls/hr IV . Q1H1M [facility] Rx#:[id number] Sodium Chloride 0.9% 500 500 ml 500 ml @ 999 mls/hr IV .Q31M [facility] Rx#:[id number] Oral 420 Other: Voiding Method Diaper Diaper Incontinent Incontinent # Voids 2 - Labs CBC & Chem 7: 12/04/23 04:40 12/04/23 04:40 Labs: Abnormal Lab Results - Last 24 Hours (Table) 12/03/23 12/03/23 12/04/23 Range/Units 11:19 11:19 04:40 RBC 3.56 L (4.10-5.20) X 10*6/uL Hgb 10.1 L (12.0-15.0) g/dL Hct 31.6 L (37.2-46.3) % NRBC/100 WBC Diff 0.02 H (0.00-0.01) X 10*3/uL Potassium 3.3 L (3.5-5.1) mmol/L Chloride 110 H (98-107) mmol/L BUN (9.0-27.0) mg/dL BUN/Creatinine Ratio (12.00-20.00) Ratio Glucose 165 H (74-99) mg/dL Plasma Lactic Acid Parveen 2.5 H* (0.7-2.0) mmol/L Calcium (8.7-10.3) mg/dL AST 40 H (14-36) U/L ALT 58 H (4-34) U/L Total Protein 5.5 L (6.3-8.2) g/dL Albumin 3.0 L (3.5-5.0) g/dL 12/04/23 Range/Units 04:40 RBC (4.10-5.20) X 10*6/uL Hgb (12.0-15.0) g/dL Hct (37.2-46.3) % NRBC/100 WBC Diff (0.00-0.01) X 10*3/uL Potassium (3.5-5.1) mmol/L Chloride 112 H (98-107) mmol/L BUN 6.3 L (9.0-27.0) mg/dL BUN/Creatinine Ratio 7.00 L (12.00-20.00) Ratio Glucose (74-99) mg/dL Plasma Lactic Acid Parveen (0.7-2.0) mmol/L Calcium 7.6 L (8.7-10.3) mg/dL AST (14-36) U/L ALT (4-34) U/L Total Protein (6.3-8.2) g/dL Albumin (3.5-5.0) g/dL Microbiology - Last 24 Hours (Table) 12/02/23 16:45 Blood Culture - Preliminary Blood
--- NOTE | 2023-12-04 14:10 | P.PN ---
Subjective Progress Note Date: 12/04/23 I am following-up with patient and she is more relaxed today compared to yesterday. Per parents her received benzo helped her relax. Objective - Vital Signs Vital signs: Vital Signs Temp 98.7 F 12/04/23 02:49 Pulse 103 H 12/04/23 12:07 Resp 25 H 12/04/23 12:07 BP 136/61 12/04/23 12:07 Pulse Ox 93 L 12/04/23 02:49 FiO2 Intake & Output 12/03/23 12/04/23 12/04/23 18:59 06:59 18:59 Intake Total 2600 420 Balance 2600 420 Intake: Intake, IV Titration 2600 Amount Piperacillin-Tazobactam 3 100 .375 gm In Sodium Chloride 0.9% 100 ml @ 25 mls/hr IVPB Q8H [facility] Rx#: [id number] Sodium Chloride 0.9% 1, 1000 000 ml @ 100 mls/hr IV . Q10H [facility] Rx#:[id number] Sodium Chloride 0.9% 1, 1000 000 ml @ 999 mls/hr IV . Q1H1M [facility] Rx#:[id number] Sodium Chloride 0.9% 500 500 ml 500 ml @ 999 mls/hr IV .Q31M [facility] Rx#:[id number] Oral 420 Other: Voiding Method Diaper Diaper Diaper Incontinent Incontinent Incontinent # Voids 2 2 - Exam General: Patient is lying in bed and does not appear in acute distress. Neuro: Limited since received benzo. Patient is severely drowsy. - Labs CBC & Chem 7: 12/04/23 04:40 12/04/23 04:40 Labs: Abnormal Lab Results - Last 24 Hours (Table) 12/04/23 12/04/23 Range/Units 04:40 04:40 RBC 3.56 L (4.10-5.20) X 10*6/uL Hgb 10.1 L (12.0-15.0) g/dL Hct 31.6 L (37.2-46.3) % NRBC/100 WBC Diff 0.02 H (0.00-0.01) X 10*3/uL Chloride 112 H (96-109) mmol/L BUN 6.3 L (9.0-27.0) mg/dL BUN/Creatinine Ratio 7.00 L (12.00-20.00) Ratio Calcium 7.6 L (8.7-10.3) mg/dL Microbiology - Last 24 Hours (Table) 12/02/23 17:00 Blood Culture - Preliminary Blood 12/02/23 16:45 Blood Culture - Preliminary Blood Assessment and Plan Assessment: This is a 38-year-old woman with history of the mental delay, nonverbal and uses a wheelchair presents because of three-week history of increased shortness of breath cough congestion. She was found to have pneumonia as well as acute UTI. Neurologist consulted for agitation and the restlessness Delirium with agitation due to underlying infection (pneumonia, UTI and hospital induced) Shortness of breath with cough and congestion due to pneumonia Acute UTI likely History the developmental delay Nonverbal at baseline History of Hypothyroidism Plan: I started the patient on Zyprexa 2.5 mg 4 times a day when necessary for agitation. Increase Seroquel from 25mg to 50mgdaily at bedtime for agitation. If possible avoid the restraints and sedation. Pulmonary team was consulted as well as ID team is consulted We'll defer the rest of the medical management to primary and other specialists The plan was discussed with the patient's parents who are at bedside. Time with Patient: Less than 30
--- NOTE | 2023-12-04 14:47 | P.PN ---
Subjective Progress Note Date: 12/04/23 This is a 38-year-old female patient who was born with a developmental delay and has a history of hypothyroidism. She was noted to have increasing shortness of breath, cough and congestion and was brought into the emergency yet room yesterday by her family. She herself is nonverbal. She is quite restless and agitated. Chest x-ray revealed bibasilar airspace disease suspect infectious/inflammatory process. CT angiogram ruled out pulmonary embolism. There is patchy consolidative opacities of the right lung base, plus scattered tree-in-bud opacities throughout the lungs bilaterally, suspect infectious at this inflammatory process. Possible fluid volume overload. Evidence of cardiomegaly. Possible aspiration. White count 9.9. Hemoglobin 11.5. Platelets 337. Sodium 143. Potassium 3.3. Bicarb 25. BUN 14. Creatinine 0.93. Glucose 165. AST 40. ALT 58. Negative H CG. Procalcitonin 0.16. Urinalysis with positive nitrates high WBCs and many bacteria. Urine Legionella screen negative. Viral screen negative. He is seen today in consultation on the regular medical floor. Her family is at the bedside. She remains quite restless and agitated. She is pulling at things. Pulling her gown off. She is febrile with a temperature of 101.0. She is tachycardic. She is maintaining O2 saturations in the 90s on room air. Blood pressure stable. She has been initiated on ceftriaxone and azithromycin. The patient is seen today December 04, 2023 in follow-up on the regular medical floor. She is currently resting in bed. A bit less restless today compared to yesterday. She is maintaining good O2 saturation in the 90s on room air. She is afebrile. Hemodynamically stable. Blood cultures are pending. White count 9.3. Hemoglobin 10.1. Platelets 298. Sodium 145. Potassium 3.6. Bicarb 24. BUN 6. Creatinine 0 point. Glucose 71. She remains on bronchodilators. Antib iotics in the form of Zosyn. She is on Seroquel at bedtime. Ativan as needed throughout the day. Parents are currently at the bedside. Objective - Vital Signs Vital signs: Vital Signs Temp 98.7 F 12/04/23 02:49 Pulse 103 H 12/04/23 12:07 Resp 25 H 12/04/23 12:07 BP 136/61 12/04/23 12:07 Pulse Ox 93 L 12/04/23 02:49 FiO2 Intake & Output 12/03/23 12/04/23 12/04/23 18:59 06:59 18:59 Intake Total 2600 420 Balance 2600 420 Intake: Intake, IV Titration 2600 Amount Piperacillin-Tazobactam 3 100 .375 gm In Sodium Chloride 0.9% 100 ml @ 25 mls/hr IVPB Q8H [facility] Rx#: [id number] Sodium Chloride 0.9% 1, 1000 000 ml @ 100 mls/hr IV . Q10H [facility] Rx#:[id number] Sodium Chloride 0.9% 1, 1000 000 ml @ 999 mls/hr IV . Q1H1M [facility] Rx#:[id number] Sodium Chloride 0.9% 500 500 ml 500 ml @ 999 mls/hr IV .Q31M [facility] Rx#:[id number] Oral 420 Other: Voiding Method Diaper Diaper Diaper Incontinent Incontinent Incontinent # Voids 2 2 - Exam GENERAL EXAM: Alert, less restless today, nonverbal 38-year-old female, on room air, comfortable in no apparent distress. HEAD: Normocephalic. EYES: Normal reaction of pupils, equal size. NOSE: Clear with pink turbinates. THROAT: No erythema or exudates. NECK: No masses, no JVD. CHEST: No chest wall deformity. LUNGS: Equal air entry with few scattered rhonchi. CVS: S1 and S2 normal with no audible murmur, regular rhythm. ABDOMEN: No hepatosplenomegaly, normal bowel sounds, no guarding or rigidity. SPINE: Kyphoscoliosis with skeletal abnormalities SKIN: No rashes CENTRAL NERVOUS SYSTEM: Unable to evaluate neurological status, tone is normal in all 4 extremities. EXTREMITIES: There is no peripheral edema. No clubbing, no cyanosis. Peripheral pulses are intact. - Labs CBC & Chem 7: 12/04/23 04:40 12/04/23 04:40 Labs: Abnormal Lab Results - Last 24 Hours (Table) 12/04/23 12/04/23 Range/Units 04:40 04:40 RBC 3.56 L (4.10-5.20) X 10*6/uL Hgb 10.1 L (12.0-15.0) g/dL Hct 31.6 L (37.2-46.3) % NRBC/100 WBC Diff 0.02 H (0.00-0.01) X 10*3/uL Chloride 112 H (96-109) mmol/L BUN 6.3 L (9.0-27.0) mg/dL BUN/Creatinine Ratio 7.00 L (12.00-20.00) Ratio Calcium 7.6 L (8.7-10.3) mg/dL Microbiology - Last 24 Hours (Table) 12/02/23 17:00 Blood Culture - Preliminary Blood 12/02/23 16:45 Blood Culture - Preliminary Blood Assessment and Plan Assessment: Shortness of breath, cough, congestion possibly related to community-acquired versus aspiration pneumonia versus fluid volume overload. Improved and on room air Urinary tract infection Altered mental status secondary to above with restlessness and increased agitation more than normal according to her family, less restless today Febrile illness secondary to above, recovered History of congenital developmental delay Hypothyroidism Plan: The patient was seen and evaluated Labs and medications reviewed Continue antibiotics and bronchodilators Improved with Ativan, Zyprexa and Seroquel We will continue to follow I have personally seen and examined the patient, performed the documentation and the assessment and plan as written. Number of minutes spent on the visit: 10.
--- NOTE | 2023-12-04 15:35 | P.PN ---
Subjective Progress Note Date: 12/04/23 Principal diagnosis: Reason for follow-up is aspiration pneumonia Patient is a 38-year-old female past medical history significant for developmental/mentally delayed hypothyroidism patient apparently did have a flu about 4 weeks ago, patient has been brought to the hospital for evaluation of fever worsening cough and vomiting patient has been diagnosed with sepsis se condary to pneumonia possible aspiration. On today's visit that is 12/04/2023,the patient did have resolution of her fever and is afebrile this morning patient seem to be more calmer and is breathing comfortably room air per the mother at the bedside cough is also decreased intensity and no further vomiting has been reported. Patient white count 9.35, creatinine 0.9 blood cultures pending Objective - Vital Signs Vital signs: Vital Signs Temp 98.7 F 12/04/23 02:49 Pulse 103 H 12/04/23 12:07 Resp 25 H 12/04/23 12:07 BP 136/61 12/04/23 12:07 Pulse Ox 93 L 12/04/23 02:49 FiO2 Intake & Output 12/03/23 12/04/23 12/04/23 18:59 06:59 18:59 Intake Total 2600 420 Balance 2600 420 Intake: Intake, IV Titration 2600 Amount Piperacillin-Tazobactam 3 100 .375 gm In Sodium Chloride 0.9% 100 ml @ 25 mls/hr IVPB Q8H [facility] Rx#: [id number] Sodium Chloride 0.9% 1, 1000 000 ml @ 100 mls/hr IV . Q10H [facility] Rx#:[id number] Sodium Chloride 0.9% 1, 1000 000 ml @ 999 mls/hr IV . Q1H1M [facility] Rx#:[id number] Sodium Chloride 0.9% 500 500 ml 500 ml @ 999 mls/hr IV .Q31M [facility] Rx#:[id number] Oral 420 Other: Voiding Method Diaper Diaper Diaper Incontinent Incontinent Incontinent # Voids 2 2 - Exam GENERAL DESCRIPTION: Middle-age female lying in bed in no distress RESPIRATORY SYSTEM: Unlabored breathing , decreased breath sounds at bases HEART: S1 S2 regular rate and rhythm , ABDOMEN: Soft , no tenderness EXTREMITIES: No edema feet - Labs CBC & Chem 7: 12/04/23 04:40 12/04/23 04:40 Labs: Abnormal Lab Results - Last 24 Hours (Table) 12/04/23 12/04/23 Range/Units 04:40 04:40 RBC 3.56 L (4.10-5.20) X 10*6/uL Hgb 10.1 L (12.0-15.0) g/dL Hct 31.6 L (37.2-46.3) % NRBC/100 WBC Diff 0.02 H (0.00-0.01) X 10*3/uL Chloride 112 H (96-109) mmol/L BUN 6.3 L (9.0-27.0) mg/dL BUN/Creatinine Ratio 7.00 L (12.00-20.00) Ratio Calcium 7.6 L (8.7-10.3) mg/dL Microbiology - Last 24 Hours (Table) 12/02/23 17:00 Blood Culture - Preliminary Blood 12/02/23 16:45 Blood Culture - Preliminary Blood Assessment and Plan (1) Right lower lobe pneumonia Current Visit: Yes Status: Acute Code(s): J18.9 - PNEUMONIA, UNSPECIFIED ORGANISM SNOMED Code(s): 475650095 Plan: 1patient presented hospital with sepsis in this patient who did have a fever elevated white count right-sided pneumonia in this patient significant vomiting high clinical suspicion for aspiration pneumonia rather than community-acquired pneumonia 2-sputum not collected procalcitonin is pending 3-patient to continue Zosyn 3.375 g every 8 hours and monitor glucose closely Mother at bedside questions answered Dictation was produced using [employer] dictation software. please excuse any grammatical, word or spelling errors. Time with Patient: Less than 30
[2023-12-04] MEDS: QUEtiapine 25 MG TAB PO SCH (21:46)
[2023-12-05 09:13] LABS: HCT 36.9 % (34.0-46.0); HGB 11.6 gm/dL (11.4-16.0); Hypochromasia Slight; MCH 28.8 pg (25.0-35.0); MCHC 31.4 g/dL (31.0-37.0); MCV 91.7 fL (80.0-100.0); Mean Platelet Volume 7.6; Platelet Count 292 k/uL (150-450); RBC 4.03 m/uL (3.80-5.40); RDW 13.7 % (11.5-15.5); WBC 6.4 k/uL (3.8-10.6)
[2023-12-05 09:18] LABS: African American GFR (CKD) >90 (>60 ml/min/1.73 sqM); Anion Gap 7 mmol/L; Blood Urea Nitrogen 2 mg/dL (7-17); Calcium 7.9 mg/dL (8.4-10.2); Carbon Dioxide 26 mmol/L (22-30); Chloride 112 mmol/L (98-107); Glucose 75 mg/dL (74-99); Non-African American GFR(CKD) 81 (>60 ml/min/1.73 sqM); Potassium 3.6 mmol/L (3.5-5.1); Sodium 145 mmol/L (137-145)
--- NOTE | 2023-12-05 09:52 | CDI ---
Documentation Clarification Form Date: 12/05/2023 08:45:29 AM From: Pat Rangel RN CCDS Phone: [phone] Admit Date: 12/02/2023 09:21:00 PM Patient Name: Shelia Diaz Visit Number: [id number] Discharge Date: ATTENTION: The Clinical Documentation Specialists (CDI) and [facility] Coding Staff appreciate your assistance in clarifying documentation. Please respond to the clarification below the line at the bottom and electronically sign. The CDI & [facility] Coding staff will review the response and follow-up if needed. Please note: Queries are made part of the Legal Health Record. If you have any questions, please contact the author of this message via ITS. Dr. David Salcedo Your patient has delirium with agitation, 12/02, Neurology consult. Additional clarification regarding delirium is requested. History/Risk Factors:38-year-old female presents to the ED with three week history of increased shortness of breath, cough and congestion. Medical History: Developmental delay, Hypothyroid and nonverbal at baseline. , Neurology consult. Clinical Indicators: Neurology consult, 12/04: Neurologist consulted for agitation and the restlessness VVS, 12/01: B/P 113/57; HR 119; Temp 98.8F Tympanic; RR 26; SpO2 90% Labs: 12/01 Wbc 12.0; Neutrophils 8.3; D-Dimer 1.34; AST 82; ALT 90; Procalcitonin 0.16; Urinalysis: Appearance cloudy, Urine protein 2+; Ketones 1+; Blood small; Nitrate Positive; Leukocyte Esterase Large; RBC 19; Wbc >182; Wbc clumps Occasional; Bacteria Many; Mucus X Ray, 12/01: Bibasilar airspace disease, most likely related to infectious inflammatory process. CT angio chest, 12/01: Patchy consolidative opacities at the right lung base, plus scattered tree-in-bud opacities throughout the lungs bilaterally, likely due to infectious/inflammatory process. Treatment: Rocephin 1,000mg IVP, 12/01 Azithromycin 500mg IVPB x 1; 12/02 Seroquel 12.5mg po x 2; 12/02 Zithromax 500mg po daily x 2 doses; 12/02 Zosyn ivpb 3.375m IVPB Q8H; 12/02 0.9NS 1.5L bolus. Please clarify delirium: [ ] Acute Metabolic Encephalopathy due to Infection (Sepsis - UTI, Pneumonia) [ ] Other condition (please specify) [ ] Unable to determine --->acute metabolic encephalopathy due to infection (possible pneumonia, UTI) (Template Last Revised: October 2020) MTDD
--- NOTE | 2023-12-05 12:25 | P.PN ---
Subjective Progress Note Date: 12/05/23 * 38-year-old patient with past medical history significant for developmental delay, presents to the emergency department with complaints of cough, congestion, shortness of breath and wheezing. * Initiated in ER including a CT chest which was negative for pulm embolism however patchy consolidation and opacity was noted at the right lung base. * Workup initiated in ER included CBC showed WBC count of 12,000, platelet count of 413, D-dimer 1.34 serum chemistry showed sodium 140 potassium 3.5 chloride 102 BUN 15 creatinine 0.98 glucose 115 ALT of 90 AST of 82 * Procalcitonin 0.16 * Urinalysis obtained showed significant amount of WBC many bacteria urine test negative * Patient tested negative for influenza RSV and COVID * she admitted to medical floor for treatment of pneumonia and UTI * History obtained from parents at bedside * During the day patient remained agitated requiring soft restraints, neurology was consulted as well patient was started on as needed Zyprexa * 12/04/23: Patient seen and evaluated bedside, parents at bedside. Patient remains disoriented had been given Ativan, patient is resting comfortably. Review of system limited patient nonverbal per parents patient continues to remain agitated however after medicine she is comfortable * 12/05/2023: Patient seen and evaluated bedside, patient remains on room air. Blood work reviewed CBC within normal limits serum chemistry shows calcium of 7.9. Seen by infectious disease and pulmonary medicine remains afebrile. Continue IV antibiotics encourage oral intake family at bedside. Mentation has improved PHYSICAL EXAMINATION: GENERAL: The patient is alert and oriented x o, ill appearance, less agitated. CARDIOVASCULAR: S1 and S2 present. Tachycardia PULMONARY: Improved air entry no wheeze no use accessory muscle ABDOMEN: Soft, nontender, nondistended, normoactive bowel sounds. MUSCULOSKELETAL: No joint swelling or deformity. EXTREMITIES: No skin injury or trauma noted NEUROLOGICAL: Disoriented, exam limited secondary to lack of patient cooperation Assessment and plan * Multifocal pneumonia * Urinary tract infection * Sepsis secondary to pneumonia and UTI * History of developmental delay, nonverbal at baseline * Transaminitis likely secondary to sepsis * Hypothyroid * In regards to multifocal pneumonia, chest CT chest reviewed, Recieved Rocephin and Azithromycin> transitioned to Zosyn day 3> Infectious disease >> pulmonary medicine consulted * Regards to urinary tract infection, blood cultures and urine cultures ordered continue patient on IV Zosyn day 3 * Regards to sepsis , follow-up on blood cultures no growth, continue with IV fluids * In regards to transaminitis follow-up on liver profile * Regards to delirium with acute agitation continue to use Zyprexa as needed, appreciate input from neurology avoiding restraints * CODE STATUS is full code Objective - Vital Signs Vital signs: Vital Signs Temp 98.6 F 12/05/23 09:25 Pulse 103 H 12/05/23 09:25 Resp 18 12/05/23 09:25 BP 149/66 12/05/23 09:25 Pulse Ox 94 L 12/05/23 09:25 FiO2 Intake & Output 12/04/23 12/05/23 12/05/23 18:59 06:59 18:59 Other: Voiding Method Diaper Diaper Incontinent Incontinent # Voids 2 1 - Labs CBC & Chem 7: 12/05/23 08:04 12/05/23 08:04 Labs: Abnormal Lab Results - Last 24 Hours (Table) 12/05/23 Range/Units 08:04 Chloride 112 H (98-107) mmol/L BUN 2 L (7-17) mg/dL Calcium 7.9 L (8.4-10.2) mg/dL Microbiology - Last 24 Hours (Table) 12/02/23 16:45 Blood Culture - Preliminary Blood 12/02/23 17:00 Blood Culture - Preliminary Blood
--- NOTE | 2023-12-05 14:06 | P.PN ---
Subjective Progress Note Date: 12/05/23 This is a 38-year-old female patient who was born with a developmental delay and has a history of hypothyroidism. She was noted to have increasing shortness of breath, cough and congestion and was brought into the emergency yet room yesterday by her family. She herself is nonverbal. She is quite restless and agitated. Chest x-ray revealed bibasilar airspace disease suspect infectious/inflammatory process. CT angiogram ruled out pulmonary embolism. There is patchy consolidative opacities of the right lung base, plus scattered tree-in-bud opacities throughout the lungs bilaterally, suspect infectious at this inflammatory process. Possible fluid volume overload. Evidence of cardiomegaly. Possible aspiration. White count 9.9. Hemoglobin 11.5. Platelets 337. Sodium 143. Potassium 3.3. Bicarb 25. BUN 14. Creatinine 0.93. Glucose 165. AST 40. ALT 58. Negative H CG. Procalcitonin 0.16. Urinalysis with positive nitrates high WBCs and many bacteria. Urine Legionella screen negative. Viral screen negative. He is seen today in consultation on the regular medical floor. Her family is at the bedside. She remains quite restless and agitated. She is pulling at things. Pulling her gown off. She is febrile with a temperature of 101.0. She is tachycardic. She is maintaining O2 saturations in the 90s on room air. Blood pressure stable. She has been initiated on ceftriaxone and azithromycin. The patient is seen today December 04, 2023 in follow-up on the regular medical floor. She is currently resting in bed. A bit less restless today compared to yesterday. She is maintaining good O2 saturation in the 90s on room air. She is afebrile. Hemodynamically stable. Blood cultures are pending. White count 9.3. Hemoglobin 10.1. Platelets 298. Sodium 145. Potassium 3.6. Bicarb 24. BUN 6. Creatinine 0 point. Glucose 71. She remains on bronchodilators. Antib iotics in the form of Zosyn. She is on Seroquel at bedtime. Ativan as needed throughout the day. Parents are currently at the bedside. The patient is seen today December 05, 2023 in follow-up on the regular medical floor. She is resting comfortably in bed. Getting back to her baseline according to her mom. She is smiling and cooperative today. She is maintaining good O2 saturations in the 90s on room air. She is afebrile. Hemodynamically stable. White count 6.4. Hemoglobin 11.6. Platelets 292. Sodium 145. Potassium 3.6. Bicarb 26. BUN 2. Creatinine 0.92. Glucose 75. She remains on Zosyn. Continued on bronchodilators. Heparin for DVT prophylaxis. Remains on Seroquel at night. Ativan as needed. Objective - Vital Signs Vital signs: Vital Signs Temp 98.6 F 12/05/23 09:25 Pulse 103 H 12/05/23 09:25 Resp 18 12/05/23 09:25 BP 149/66 12/05/23 09:25 Pulse Ox 94 L 12/05/23 09:25 FiO2 Intake & Output 12/04/23 12/05/23 12/05/23 18:59 06:59 18:59 Other: Voiding Method Diaper Diaper Diaper Incontinent Incontinent Incontinent # Voids 2 1 - Exam GENERAL EXAM: Alert, smiling today, nonverbal 38-year-old female, on room air, in no apparent distress. HEAD: Normocephalic. EYES: Normal reaction of pupils, equal size. NOSE: Clear with pink turbinates. THROAT: No erythema or exudates. NECK: No masses, no JVD. CHEST: No chest wall deformity. LUNGS: Equal air entry with few scattered rhonchi. CVS: S1 and S2 normal with no audible murmur, regular rhythm. ABDOMEN: No hepatosplenomegaly, normal bowel sounds, no guarding or rigidity. SPINE: Kyphoscoliosis with skeletal abnormalities SKIN: No rashes CENTRAL NERVOUS SYSTEM: Unable to evaluate neurological status, tone is normal in all 4 extremities. EXTREMITIES: There is no peripheral edema. No clubbing, no cyanosis. Peripheral pulses are intact. - Labs CBC & Chem 7: 12/05/23 08:04 12/05/23 08:04 Labs: Abnormal Lab Results - Last 24 Hours (Table) 12/05/23 Range/Units 08:04 Chloride 112 H (98-107) mmol/L BUN 2 L (7-17) mg/dL Calcium 7.9 L (8.4-10.2) mg/dL Microbiology - Last 24 Hours (Table) 12/02/23 17:00 Blood Culture - Preliminary Blood 12/02/23 16:45 Blood Culture - Preliminary Blood Assessment and Plan Assessment: Shortness of breath, cough, congestion possibly related to community-acquired versus aspiration pneumonia versus fluid volume overload. Improved and on room air Urinary tract infection Altered mental status secondary to above with restlessness and increased agita tion more than normal according to her family, less restless today and improving Febrile illness secondary to above, recovered History of congenital developmental delay Hypothyroidism Plan: The patient was seen and evaluated Labs and medications reviewed Continue antibiotics and bronchodilators Remains stable and on room air Less restless Follow-up chest x-ray in a.m. We will continue to follow I have personally seen and examined the patient, performed the documentation and the assessment and plan as written. Number of minutes spent on the visit: 10.
--- NOTE | 2023-12-05 15:23 | P.PN ---
Subjective Progress Note Date: 12/05/23 I am following-up with patient and she is accompanied with her father. He feels she is less agitated and restless. Objective - Vital Signs Vital signs: Vital Signs Temp 98.2 F 12/05/23 14:00 Pulse 89 12/05/23 14:00 Resp 17 12/05/23 14:00 BP 95/61 12/05/23 14:00 Pulse Ox 99 12/05/23 14:00 FiO2 Intake & Output 12/04/23 12/05/23 12/05/23 18:59 06:59 18:59 Other: Voiding Method Diaper Diaper Diaper Incontinent Incontinent Incontinent # Voids 2 1 - Exam General: Patient is lying in bed and does not appear in acute distress. Neuro: Limited Patient is sleeping. No facial weakness. - Labs CBC & Chem 7: 12/05/23 08:04 12/05/23 08:04 Labs: Abnormal Lab Results - Last 24 Hours (Table) 12/05/23 Range/Units 08:04 Chloride 112 H (98-107) mmol/L BUN 2 L (7-17) mg/dL Calcium 7.9 L (8.4-10.2) mg/dL Microbiology - Last 24 Hours (Table) 12/02/23 17:00 Blood Culture - Preliminary Blood 12/02/23 16:45 Blood Culture - Preliminary Blood Assessment and Plan Assessment: This is a 38-year-old woman with history of the mental delay, nonverbal and uses a wheelchair presents because of three-week history of increased shortness of breath cough congestion. She was found to have pneumonia as well as acute UTI. Neurologist consulted for agitation and the restlessness Delirium with agitation due to underlying infection (pneumonia, UTI and hospital induced)--improving Shortness of breath with cough and congestion due to pneumonia Acute UTI likely History the developmental delay Nonverbal at baseline History of Hypothyroidism Plan: I started the patient on Zyprexa 2.5 mg 4 times a day when necessary for agitation. Increase Seroquel from 25mg to 50mgdaily at bedtime for agitation. If possible avoid the restraints and sedation. Pulmonary team was consulted as well as ID team is consulted We'll defer the rest of the medical management to primary and other specialists The plan was discussed with the patient's father who is at bedside. Will follow-up with patient sporadically. Time with Patient: Less than 30
--- NOTE | 2023-12-05 18:01 | P.PN ---
Subjective Progress Note Date: 12/05/23 Principal diagnosis: Reason for follow-up is aspiration pneumonia Patient is a 38-year-old female past medical history significant for developmental/mentally delayed hypothyroidism patient apparently did have a flu about 4 weeks ago, patient has been brought to the hospital for evaluation of fever worsening cough and vomiting patient has been diagnosed with sepsis se condary to pneumonia possible aspiration. On today's visit that is 12/05/2023, the patient continues to be afebrile, the patient is on room air and breathing comfortably, the Pt family at the bedside mention patient doing well today she is breathing more comfortably cough I decreased intensity no further vomiting has been reported. Patient white count 6.4, creatinine 0.92 blood culture negative sputum not collected Objective - Vital Signs Vital signs: Vital Signs Temp 98.2 F 12/05/23 14:00 Pulse 89 12/05/23 14:00 Resp 17 12/05/23 14:00 BP 95/61 12/05/23 14:00 Pulse Ox 99 12/05/23 14:00 FiO2 Intake & Output 12/04/23 12/05/23 12/05/23 18:59 06:59 18:59 Other: Voiding Method Diaper Diaper Diaper Incontinent Incontinent Incontinent # Voids 2 1 - Exam GENERAL DESCRIPTION: Middle-age female lying in bed in no distress RESPIRATORY SYSTEM: Unlabored breathing , decreased breath sounds at bases HEART: S1 S2 regular rate and rhythm , ABDOMEN: Soft , no tenderness EXTREMITIES: No edema feet - Labs CBC & Chem 7: 12/05/23 08:04 12/05/23 08:04 Labs: Abnormal Lab Results - Last 24 Hours (Table) 12/05/23 Range/Units 08:04 Chloride 112 H (98-107) mmol/L BUN 2 L (7-17) mg/dL Calcium 7.9 L (8.4-10.2) mg/dL Microbiology - Last 24 Hours (Table) 12/02/23 17:00 Blood Culture - Preliminary Blood 12/02/23 16:45 Blood Culture - Preliminary Blood Assessment and Plan (1) Right lower lobe pneumonia Current Visit: Yes Status: Acute Code(s): J18.9 - PNEUMONIA, UNSPECIFIED ORGANISM SNOMED Code(s): 329018073 Plan: 1patient presented hospital with sepsis in this patient who did have a fever elevated white count right-sided pneumonia in this patient significant vomiting high clinical suspicion for aspiration pneumonia rather than community-acquired pneumonia 2-sputum not collected procalcitonin is pending 3-patient seem to have clinically clinical and will continue Zosyn 3.375 g every 8 hours finishing therapy with oral Augmentin Dictation was produced using [employer] dictation software. please excuse any grammatical, word or spelling errors. Time with Patient: Less than 30
[2023-12-06 06:24] LABS: HCT 38.4 % (34.0-46.0); HGB 11.4 gm/dL (11.4-16.0); Hypochromasia Marked; MCHC 29.8 g/dL (31.0-37.0); Platelet Count 287 k/uL (150-450); RBC 3.95 m/uL (3.80-5.40); RDW 13.7 % (11.5-15.5); WBC 6.9 k/uL (3.8-10.6)
[2023-12-06 06:32] LABS: MCV 97.4 fL (80.0-100.0)
[2023-12-06 09:02] LABS: ALT 38 U/L (8-44); AST 36 U/L (13-35); Albumin/Globulin Ratio 1.43 Ratio (1.60-3.17); Alkaline Phosphatase 98 U/L (41-126); Blood Urea Nitrogen 3.9 mg/dL (9.0-27.0); Calcium 8.2 mg/dL (8.7-10.3); Carbon Dioxide 24.1 mmol/L (21.6-31.8); Chloride 110 mmol/L (96-109); Globulin 2.1 g/dL (1.6-3.3); Glucose 82 mg/dL (70-110); Potassium 3.6 mmol/L (3.5-5.5); Sodium 145 mmol/L (135-145); Total Bilirubin 0.3 mg/dL (0.3-1.2); Total Protein 5.1 g/dL (6.2-8.2)
--- NOTE | 2023-12-06 11:59 | XR ---
EXAMINATION TYPE: XR chest 1V portable DATE OF EXAM: 12/06/2023 COMPARISON: 12/03/2023 INDICATION: Pneumonia, cough TECHNIQUE: Single frontal view of the chest is obtained. Patient is rotated to the right. FINDINGS: The heart size is normal. The pulmonary vasculature is normal. There is silhouetting of the heart borders on the left and right. Minimal perihilar infiltrate may be present. Correlate for viral pneumonia. Follow-up can be performed as clinically indicated IMPRESSION: 1. Mild perihilar infiltrates with partial silhouetting of the heart borders right correlate for pneu monia. Consider viral pneumonia.
--- NOTE | 2023-12-06 12:16 | P.PN ---
Subjective Progress Note Date: 12/06/23 * 38-year-old patient with past medical history significant for developmental delay, presents to the emergency department with complaints of cough, congestion, shortness of breath and wheezing. * Initiated in ER including a CT chest which was negative for pulm embolism however patchy consolidation and opacity was noted at the right lung base. * Workup initiated in ER included CBC showed WBC count of 12,000, platelet count of 413, D-dimer 1.34 serum chemistry showed sodium 140 potassium 3.5 chloride 102 BUN 15 creatinine 0.98 glucose 115 ALT of 90 AST of 82 * Procalcitonin 0.16 * Urinalysis obtained showed significant amount of WBC many bacteria urine test negative * Patient tested negative for influenza RSV and COVID * she admitted to medical floor for treatment of pneumonia and UTI * History obtained from parents at bedside * During the day patient remained agitated requiring soft restraints, neurology was consulted as well patient was started on as needed Zyprexa * 12/04/23: Patient seen and evaluated bedside, parents at bedside. Patient remains disoriented had been given Ativan, patient is resting comfortably. Review of system limited patient nonverbal per parents patient continues to remain agitated however after medicine she is comfortable * 12/05/2023: Patient seen and evaluated bedside, patient remains on room air. Blood work reviewed CBC within normal limits serum chemistry shows calcium of 7.9. Seen by infectious disease and pulmonary medicine remains afebrile. Continue IV antibiotics encourage oral intake family at bedside. Mentation has improved * 12/06/2023: Patient seen and evaluated bedside,Blood work reviewed WBC 6.9 hemoglobin 11.9, serum chemistry sodium 145 potassium 3.6 BUN 3.9 creatinine 1, minimally elevated AST 36 ALT 38. Continue IV Zosyn upon discharge will transition to Augmentin, minimal oral intake will continue to monitor for another 24 hours. PHYSICAL EXAMINATION: GENERAL: The patient is alert and oriented x o, ill appearance, less agitated. CARDIOVASCULAR: S1 and S2 present. Tachycardia PULMONARY: Improved air entry no wheeze no use accessory muscle ABDOMEN: Soft, nontender, nondistended, normoactive bowel sounds. MUSCULOSKELETAL: No joint swelling or deformity. EXTREMITIES: No skin injury or trauma noted NEUROLOGICAL: Disoriented, exam limited secondary to lack of patient cooperation Assessment and plan * Multifocal pneumonia * Urinary tract infection * Sepsis secondary to pneumonia and UTI * History of developmental delay, nonverbal at baseline * Transaminitis likely secondary to sepsis * Hypothyroid * In regards to multifocal pneumonia, chest CT chest reviewed, Recieved Rocephin and Azithromycin> transitioned to Zosyn day 4 > Infectious disease >> pulmonary medicine consulted * Regards to urinary tract infection, blood cultures and urine cultures ordered continue patient on IV Zosyn day 4/7 on discharge will give Augmentin * Regards to sepsis , follow-up on blood cultures no growth, continue with IV fluids, encourage oral intake * In regards to transaminitis follow-up on liver profile trending down * Regards to delirium with acute agitation continue to use Zyprexa as needed, appreciate input from neurology avoiding restraints * CODE STATUS is full code Objective - Vital Signs Vital signs: Vital Signs Temp 98.5 F 12/06/23 08:00 Pulse 94 12/06/23 08:00 Resp 18 12/06/23 08:00 BP 99/59 12/06/23 08:00 Pulse Ox 93 L 12/06/23 08:00 FiO2 Intake & Output 12/05/23 12/06/23 12/06/23 18:59 06:59 18:59 Intake Total 1400 Balance 1400 Intake: Intake, IV Titration 1400 Amount Piperacillin-Tazobactam 3 200 .375 gm In Sodium Chloride 0.9% 100 ml @ 25 mls/hr IVPB Q8H JUNI Rx#: [id number] Sodium Chloride 0.9% 1, 1200 000 ml @ 100 mls/hr IV . Q10H JUNI Rx#:[id number] Other: Voiding Method Diaper Diaper Incontinent Incontinent # Voids 1 - Labs CBC & Chem 7: 12/06/23 05:17 12/06/23 05:17 Labs: Abnormal Lab Results - Last 24 Hours (Table) 12/06/23 12/06/23 Range/Units 05:17 05:17 MCHC 29.8 L (31.0-37.0) g/dL Chloride 110 H (96-109) mmol/L BUN 3.9 L (9.0-27.0) mg/dL BUN/Creatinine Ratio 3.90 L (12.00-20.00) Ratio Calcium 8.2 L (8.7-10.3) mg/dL AST 36 H (13-35) U/L Total Protein 5.1 L (6.2-8.2) g/dL Albumin 3.0 L (3.8-4.9) g/dL Albumin/Globulin Ratio 1.43 L (1.60-3.17) Ratio Microbiology - Last 24 Hours (Table) 12/02/23 16:45 Blood Culture - Preliminary Blood 12/02/23 17:00 Blood Culture - Preliminary Blood
--- NOTE | 2023-12-06 15:11 | P.PN ---
Subjective Progress Note Date: 12/06/23 This is a 38-year-old female patient who was born with a developmental delay and has a history of hypothyroidism. She was noted to have increasing shortness of breath, cough and congestion and was brought into the emergency yet room yesterday by her family. She herself is nonverbal. She is quite restless and agitated. Chest x-ray revealed bibasilar airspace disease suspect infectious/inflammatory process. CT angiogram ruled out pulmonary embolism. There is patchy consolidative opacities of the right lung base, plus scattered tree-in-bud opacities throughout the lungs bilaterally, suspect infectious at this inflammatory process. Possible fluid volume overload. Evidence of cardiomegaly. Possible aspiration. White count 9.9. Hemoglobin 11.5. Platelets 337. Sodium 143. Potassium 3.3. Bicarb 25. BUN 14. Creatinine 0.93. Glucose 165. AST 40. ALT 58. Negative H CG. Procalcitonin 0.16. Urinalysis with positive nitrates high WBCs and many bacteria. Urine Legionella screen negative. Viral screen negative. He is seen today in consultation on the regular medical floor. Her family is at the bedside. She remains quite restless and agitated. She is pulling at things. Pulling her gown off. She is febrile with a temperature of 101.0. She is tachycardic. She is maintaining O2 saturations in the 90s on room air. Blood pressure stable. She has been initiated on ceftriaxone and azithromycin. The patient is seen today December 04, 2023 in follow-up on the regular medical floor. She is currently resting in bed. A bit less restless today compared to yesterday. She is maintaining good O2 saturation in the 90s on room air. She is afebrile. Hemodynamically stable. Blood cultures are pending. White count 9.3. Hemoglobin 10.1. Platelets 298. Sodium 145. Potassium 3.6. Bicarb 24. BUN 6. Creatinine 0 point. Glucose 71. She remains on bronchodilators. Antib iotics in the form of Zosyn. She is on Seroquel at bedtime. Ativan as needed throughout the day. Parents are currently at the bedside. The patient is seen today December 05, 2023 in follow-up on the regular medical floor. She is resting comfortably in bed. Getting back to her baseline according to her mom. She is smiling and cooperative today. She is maintaining good O2 saturations in the 90s on room air. She is afebrile. Hemodynamically stable. White count 6.4. Hemoglobin 11.6. Platelets 292. Sodium 145. Potassium 3.6. Bicarb 26. BUN 2. Creatinine 0.92. Glucose 75. She remains on Zosyn. Continued on bronchodilators. Heparin for DVT prophylaxis. Remains on Seroquel at night. Ativan as needed. The patient is seen today December 06, 2023 in follow-up on the regular medical floor. She has been improving daily. She is more comfortable. She is more interactive. Less restless and agitated. Her family is at the bedside. She is maintaining good O2 saturations in the 90s on room air. Afebrile. Hemodynamically stable. Follow-up chest x-ray reveals mild perihilar inf iltrates with partial silhouetting of the heart borders. She remains on Zosyn. Heparin for DVT prophylaxis. Bronchodilators as needed. Blood cultures revealed no growth. White count 6.9. Hemoglobin 11.4. Platelets 287. Sodium 145. Potassium 3.6. Bicarb 24. BUN 4. Creatinine 1.0. Objective - Vital Signs Vital signs: Vital Signs Temp 98.7 F 12/06/23 14:00 Pulse 86 12/06/23 14:00 Resp 18 12/06/23 14:00 BP 104/69 12/06/23 14:00 Pulse Ox 94 L 12/06/23 14:00 FiO2 Intake & Output 12/05/23 12/06/23 12/06/23 18:59 06:59 18:59 Intake Total 1400 Balance 1400 Intake: Intake, IV Titration 1400 Amount Piperacillin-Tazobactam 3 200 .375 gm In Sodium Chloride 0.9% 100 ml @ 25 mls/hr IVPB Q8H J[facility]I Rx#: [id number] Sodium Chloride 0.9% 1, 1200 000 ml @ 100 mls/hr IV . Q10H JUNI Rx#:[id number] Other: Voiding Method Diaper Diaper Diaper Incontinent Incontinent Incontinent # Voids 1 - Exam GENERAL EXAM: Alert, comfortable, nonverbal 38-year-old female, on room air, in no apparent distress. HEAD: Normocephalic. EYES: Normal reaction of pupils, equal size. NOSE: Clear with pink turbinates. THROAT: No erythema or exudates. NECK: No masses, no JVD. CHEST: No chest wall deformity. LUNGS: Equal air entry with few scattered rhonchi. CVS: S1 and S2 normal with no audible murmur, regular rhythm. ABDOMEN: No hepatosplenomegaly, normal bowel sounds, no guarding or rigidity. SPINE: Kyphoscoliosis with skeletal abnormalities SKIN: No rashes CENTRAL NERVOUS SYSTEM: Unable to evaluate neurological status, tone is normal in all 4 extremities. EXTREMITIES: There is no peripheral edema. No clubbing, no cyanosis. Peripheral pulses are intact. - Labs CBC & Chem 7: 12/06/23 05:17 12/06/23 05:17 Labs: Abnormal Lab Results - Last 24 Hours (Table) 12/06/23 12/06/23 Range/Units 05:17 05:17 MCHC 29.8 L (31.0-37.0) g/dL Chloride 110 H (96-109) mmol/L BUN 3.9 L (9.0-27.0) mg/dL BUN/Creatinine Ratio 3.90 L (12.00-20.00) Ratio Calcium 8.2 L (8.7-10.3) mg/dL AST 36 H (13-35) U/L Total Protein 5.1 L (6.2-8.2) g/dL Albumin 3.0 L (3.8-4.9) g/dL Albumin/Globulin Ratio 1.43 L (1.60-3.17) Ratio Microbiology - Last 24 Hours (Table) 12/02/23 17:00 Blood Culture - Preliminary Blood 12/02/23 16:45 Blood Culture - Preliminary Blood Assessment and Plan Assessment: Shortness of breath, cough, congestion possibly related to community-acquired versus aspiration pneumonia versus fluid volume overload. Improved and on room air Urinary tract infection Altered mental status secondary to above with restlessness and increased agitation more than normal according to her family, calm and smiling today Febrile illness secondary to above, recovered History of congenital developmental delay Hypothyroidism Plan: The patient was seen and evaluated Chest x-ray, labs and medications reviewed Continue antibiotics and bronchodilators Remains stable and on room air Probable discharge in the a.m. We will continue to follow I have personally seen and examined the patient, performed the documentation and the assessment and plan as written. Number of minutes spent on the visit: 10.
--- NOTE | 2023-12-06 15:13 | P.PN ---
Subjective Progress Note Date: 12/06/23 Principal diagnosis: Reason for follow-up is aspiration pneumonia Patient is a 38-year-old female past medical history significant for developmental/mentally delayed hypothyroidism patient apparently did have a flu about 4 weeks ago, patient has been brought to the hospital for evaluation of fever worsening cough and vomiting patient has been diagnosed with sepsis se condary to pneumonia possible aspiration. On today's visit that is 12/06/2023, Patient is afebrile patient is currently on room air patient seem to be more calmer than yesterday and tolerating her diet per the mother at the bedside who is feeding the patient no worsening cough or vomiting has been reported or any diarrhea. Patient white count 6.9, creatinine 1.0 patient did have repeat chest x-ray mild perihilar infiltrate Objective - Vital Signs Vital signs: Vital Signs Temp 98.5 F 12/06/23 08:00 Pulse 94 12/06/23 08:00 Resp 18 12/06/23 08:00 BP 99/59 12/06/23 08:00 Pulse Ox 93 L 12/06/23 08:00 FiO2 Intake & Output 12/05/23 12/06/23 12/06/23 18:59 06:59 18:59 Intake Total 1400 Balance 1400 Intake: Intake, IV Titration 1400 Amount Piperacillin-Tazobactam 3 200 .375 gm In Sodium Chloride 0.9% 100 ml @ 25 mls/hr IVPB Q8H [facility]I Rx#: [id number] Sodium Chloride 0.9% 1, 1200 000 ml @ 100 mls/hr IV . Q10H JUNI Rx#:[id number] Other: Voiding Method Diaper Diaper Diaper Incontinent Incontinent Incontinent # Voids 1 - Exam GENERAL DESCRIPTION: Middle-age female lying in bed in no distress RESPIRATORY SYSTEM: Unlabored breathing , decreased breath sounds at bases HEART: S1 S2 regular rate and rhythm , ABDOMEN: Soft , no tenderness EXTREMITIES: No edema feet - Labs CBC & Chem 7: 12/06/23 05:17 12/06/23 05:17 Labs: Abnormal Lab Results - Last 24 Hours (Table) 12/06/23 12/06/23 Range/Units 05:17 05:17 MCHC 29.8 L (31.0-37.0) g/dL Chloride 110 H (96-109) mmol/L BUN 3.9 L (9.0-27.0) mg/dL BUN/Creatinine Ratio 3.90 L (12.00-20.00) Ratio Calcium 8.2 L (8.7-10.3) mg/dL AST 36 H (13-35) U/L Total Protein 5.1 L (6.2-8.2) g/dL Albumin 3.0 L (3.8-4.9) g/dL Albumin/Globulin Ratio 1.43 L (1.60-3.17) Ratio Microbiology - Last 24 Hours (Table) 12/02/23 17:00 Blood Culture - Preliminary Blood 12/02/23 16:45 Blood Culture - Preliminary Blood Assessment and Plan (1) Right lower lobe pneumonia Current Visit: Yes Status: Acute Code(s): J18.9 - PNEUMONIA, UNSPECIFIED OR GANISM SNOMED Code(s): 146095366 Plan: 1patient presented hospital with sepsis in this patient who did have a fever elevated white count right-sided pneumonia in this patient significant vomiting high clinical suspicion for aspiration pneumonia rather than community-acquired pneumonia 2-sputum not collected procalcitonin is pending 3-patient has clinical improvement not running any fever white count normal, patient currently being treated with Zosyn 3.375 g every 8 hours and plan to finish therapy with oral Augmentin Mother at the bedside questions answered Dictation was produced using [employer] dictation software. please excuse any gra mmatical, word or spelling errors. Time with Patient: Less than 30
[2023-12-07 08:26] VITALS: RESP 17
[2023-12-07 11:22] LABS: HCT 34.2 % (37.2-46.3); HGB 10.9 g/dL (12.0-15.0); MCH 28.3 pg (27.0-32.0); MCHC 31.9 g/dL (32.0-37.0); MCV 88.8 FL (80.0-97.0); Mean Platelet Volume 9.8 FL (9.5-12.2); NRBC Per 100 WBC 0 X 10*3/uL (0.00-0.01); Platelet Count 318 X 10*3/uL (140-440); RBC 3.85 X 10*6/uL (4.10-5.20); RDW 14.3 % (11.5-14.5); WBC 6.26 X 10*3/uL (4.50-10.00)
[2023-12-07 11:38] VITALS: BMI 21.2
[2023-12-07 11:48] LABS: BUN/Creat Ratio <3.89 Ratio (12.00-20.00); Blood Urea Nitrogen <3.5 mg/dL (9.0-27.0); Calcium 8.3 mg/dL (8.7-10.3); Chloride 111 mmol/L (96-109); Glucose 81 mg/dL (70-110); Potassium 3.8 mmol/L (3.5-5.5); Sodium 145 mmol/L (135-145)
--- NOTE | 2023-12-07 13:35 | P.PN ---
Subjective Progress Note Date: 12/07/23 I am following-up with patient and she is accompanied with her parents who feels she is drastically better and is back to baseline. Objective - Vital Signs Vital signs: Vital Signs Temp 98.3 F 12/07/23 07:23 Pulse 74 12/07/23 07:23 Resp 17 12/07/23 07:23 BP 95/68 12/07/23 07:23 Pulse Ox 94 L 12/07/23 07:23 FiO2 Intake & Output 12/06/23 12/07/23 12/07/23 18:59 06:59 18:59 Intake Total 1300 Balance 1300 Weight 43.091 kg Intake: Intake, IV Titration 1300 Amount Piperacillin-Tazobactam 3 100 .375 gm In Sodium Chloride 0.9% 100 ml @ 25 mls/hr IVPB Q8H [facility] Rx#: [id number] Sodium Chloride 0.9% 1, 1200 000 ml @ 100 mls/hr IV . Q10H [facility] Rx#:[id number] Other: Voiding Method Diaper Diaper Diaper Incontinent # Voids 1 # Bowel Movements 1 - Exam General: Patient is lying in bed and does not appear in acute distress. Neuro: Limited Patient is drowsy but is awakeable on own. Does not verbalizing or follow commands. No facial weakness. - Labs CBC & Chem 7: 12/07/23 07:34 12/07/23 07:34 Labs: Abnormal Lab Results - Last 24 Hours (Table) 12/07/23 12/07/23 Range/Units 07:34 07:34 RBC 3.85 L (4.10-5.20) X 10*6/uL Hgb 10.9 L (12.0-15.0) g/dL Hct 34.2 L (37.2-46.3) % MCHC 31.9 L (32.0-37.0) g/dL Chloride 111 H (96-109) mmol/L BUN <3.5 L (9.0-27.0) mg/dL BUN/Creatinine Ratio <3.89 L (12.00-20.00) Ratio Calcium 8.3 L (8.7-10.3) mg/dL Microbiology - Last 24 Hours (Table) 12/02/23 17:00 Blood Culture - Preliminary Blood Assessment and Plan Assessment: This is a 38-year-old woman with history of the mental delay, nonverbal and uses a wheelchair presents because of three-week history of increased shortness of breath cough congestion. She was found to have pneumonia as well as acute UTI. Neurologist consulted for agitation and the restlessness Delirium with agitation due to underlying infection (pneumonia, UTI and hospital induced)--improved Shortness of breath with cough and congestion due to pneumonia Acute UTI likely History the developmental delay Nonverbal at baseline History of Hypothyroidism Plan: I started the patient on Zyprexa 2.5 mg 4 times a day when necessary for agitation. Increase Seroquel from 25mg to 50mgdaily at bedtime for agitation. If possible avoid the restraints and sedation. Pulmonary team was consulted as well as ID team is consulted We'll defer the rest of the medical management to primary and other specialists The plan was discussed with the patient's parents who are at bedside. There is no further neurological work-up. Will sign off. Please reconsult if needed. Time with Patient: Less than 30
[2023-12-07 14:43] VITALS: BP 104/71; PULSE 71; TEMP 98.1
--- NOTE | 2023-12-07 14:51 | P.PN ---
Subjective Progress Note Date: 12/07/23 This is a 38-year-old female patient who was born with a developmental delay and has a history of hypothyroidism. She was noted to have increasing shortness of breath, cough and congestion and was brought into the emergency yet room yesterday by her family. She herself is nonverbal. She is quite restless and agitated. Chest x-ray revealed bibasilar airspace disease suspect infectious/inflammatory process. CT angiogram ruled out pulmonary embolism. There is patchy consolidative opacities of the right lung base, plus scattered tree-in-bud opacities throughout the lungs bilaterally, suspect infectious at this inflammatory process. Possible fluid volume overload. Evidence of cardiomegaly. Possible aspiration. White count 9.9. Hemoglobin 11.5. Platelets 337. Sodium 143. Potassium 3.3. Bicarb 25. BUN 14. Creatinine 0.93. Glucose 165. AST 40. ALT 58. Negative H CG. Procalcitonin 0.16. Urinalysis with positive nitrates high WBCs and many bacteria. Urine Legionella screen negative. Viral screen negative. He is seen today in consultation on the regular medical floor. Her family is at the bedside. She remains quite restless and agitated. She is pulling at things. Pulling her gown off. She is febrile with a temperature of 101.0. She is tachycardic. She is maintaining O2 saturations in the 90s on room air. Blood pressure stable. She has been initiated on ceftriaxone and azithromycin. The patient is seen today December 04, 2023 in follow-up on the regular medical floor. She is currently resting in bed. A bit less restless today compared to yesterday. She is maintaining good O2 saturation in the 90s on room air. She is afebrile. Hemodynamically stable. Blood cultures are pending. White count 9.3. Hemoglobin 10.1. Platelets 298. Sodium 145. Potassium 3.6. Bicarb 24. BUN 6. Creatinine 0 point. Glucose 71. She remains on bronchodilators. Antib iotics in the form of Zosyn. She is on Seroquel at bedtime. Ativan as needed throughout the day. Parents are currently at the bedside. The patient is seen today December 05, 2023 in follow-up on the regular medical floor. She is resting comfortably in bed. Getting back to her baseline according to her mom. She is smiling and cooperative today. She is maintaining good O2 saturations in the 90s on room air. She is afebrile. Hemodynamically stable. White count 6.4. Hemoglobin 11.6. Platelets 292. Sodium 145. Potassium 3.6. Bicarb 26. BUN 2. Creatinine 0.92. Glucose 75. She remains on Zosyn. Continued on bronchodilators. Heparin for DVT prophylaxis. Remains on Seroquel at night. Ativan as needed. The patient is seen today December 06, 2023 in follow-up on the regular medical floor. She has been improving daily. She is more comfortable. She is more interactive. Less restless and agitated. Her family is at the bedside. She is maintaining good O2 saturations in the 90s on room air. Afebrile. Hemodynamically stable. Follow-up chest x-ray reveals mild perihilar inf iltrates with partial silhouetting of the heart borders. She remains on Zosyn. Heparin for DVT prophylaxis. Bronchodilators as needed. Blood cultures revealed no growth. White count 6.9. Hemoglobin 11.4. Platelets 287. Sodium 145. Potassium 3.6. Bicarb 24. BUN 4. Creatinine 1.0. The patient is seen today December 07, 2023 in follow-up on the regular medical floor. She is resting comfortably in bed. No acute distress. Maintaining O2 saturations in the 90s on room air. She is afebrile. Hemodynamically stable. Blood culture reveals no growth. White count 6.2. Hemoglobin 10.9. Platelets 318. Sodium 145. Potassium 3.8. Bicarb 23. BUN 3.5. Creatinine 0.9. Glucose 81. She remains on Zosyn. Heparin for DVT prophylaxis. Objective - Vital Signs Vital signs: Vital Signs Temp 98.1 F 12/07/23 13:25 Pulse 71 12/07/23 13:25 Resp 17 12/07/23 13:25 BP 104/71 12/07/23 13:25 Pulse Ox 96 12/07/23 13:25 FiO2 Intake & Output 12/06/23 12/07/23 12/07/23 18:59 06:59 18:59 Intake Total 1300 Balance 1300 Weight 43.091 kg Intake: Intake, IV Titration 1300 Amount Piperacillin-Tazobactam 3 100 .375 gm In Sodium Chloride 0.9% 100 ml @ 25 mls/hr IVPB Q8H [facility] Rx#: [id number] Sodium Chloride 0.9% 1, 1200 000 ml @ 100 mls/hr IV . Q10H [facility] Rx#:[id number] Other: Voiding Method Diaper Diaper Diaper Incontinent # Voids 1 # Bowel Movements 1 - Exam GENERAL EXAM: Alert, calm, cooperative nonverbal 38-year-old female, in no apparent distress. HEAD: Normocephalic. EYES: Normal reaction of pupils, equal size. NOSE: Clear with pink turbinates. THROAT: No erythema or exudates. NECK: No masses, no JVD. CHEST: No chest wall deformity. LUNGS: Equal air entry with few scattered rhonchi. On room air. CVS: S1 and S2 normal with no audible murmur, regular rhythm. ABDOMEN: No hepatosplenomegaly, normal bowel sounds, no guarding or rigidity. SPINE: Kyphoscoliosis with skeletal abnormalities SKIN: No rashes CENTRAL NERVOUS SYSTEM: Unable to evaluate neurological status, tone is normal in all 4 extremities. EXTREMITIES: There is no peripheral edema. No clubbing, no cyanosis. Peripheral pulses are intact. - Labs CBC & Chem 7: 12/07/23 07:34 12/07/23 07:34 Labs: Abnormal Lab Results - Last 24 Hours (Table) 12/07/23 12/07/23 Range/Units 07:34 07:34 RBC 3.85 L (4.10-5.20) X 10*6/uL Hgb 10.9 L (12.0-15.0) g/dL Hct 34.2 L (37.2-46.3) % MCHC 31.9 L (32.0-37.0) g/dL Chloride 111 H (96-109) mmol/L BUN <3.5 L (9.0-27.0) mg/dL BUN/Creatinine Ratio <3.89 L (12.00-20.00) Ratio Calcium 8.3 L (8.7-10.3) mg/dL Microbiology - Last 24 Hours (Table) 12/02/23 17:00 Blood Culture - Preliminary Blood Assessment and Plan Assessment: Shortness of breath, cough, congestion possibly related to community-acquired versus aspiration pneumonia versus fluid volume overload. Improved and on room air Urinary tract infection Altered mental status secondary to above with restlessness and increased agitation more than normal according to her family, calm and smiling today Febrile illness secondary to above, recovered History of congenital developmental delay Hypothyroidism Plan: The patient was seen and evaluated Labs and medications reviewed Remains stable and on room air Discontinue Zosyn Augmentin x 5 days Cleared for discharge I have personally seen and examined the patient, performed the documentation and the assessment and plan as written. Number of minutes spent on the visit: 10.
--- NOTE | 2023-12-07 15:53 | P.PN ---
Subjective Progress Note Date: 12/07/23 Principal diagnosis: Reason for follow-up is aspiration pneumonia Patient is a 38-year-old female past medical history significant for developmental/mentally delayed hypothyroidism patient apparently did have a flu about 4 weeks ago, patient has been brought to the hospital for evaluation of fever worsening cough and vomiting patient has been diagnosed with sepsis se condary to pneumonia possible aspiration. On today's visit that is 12/07/2023, patient has been afebrile, patient is breathing comfortably and is currently on room air, patient seem to be more baseline per the mother at the bedside she is being fed without any choking or vomiting and no worsening cough has been reported by the mother at the bedside. Patient white count 6.26, creatinine 0.9 blood culture has been negative Objective - Vital Signs Vital signs: Vital Signs Temp 98.3 F 12/07/23 07:23 Pulse 74 12/07/23 07:23 Resp 17 12/07/23 07:23 BP 95/68 12/07/23 07:23 Pulse Ox 94 L 12/07/23 07:23 FiO2 Intake & Output 12/06/23 12/07/23 12/07/23 18:59 06:59 18:59 Intake Total 1300 Balance 1300 Weight 43.091 kg Intake: Intake, IV Titration 1300 Amount Piperacillin-Tazobactam 3 100 .375 gm In Sodium Chloride 0.9% 100 ml @ 25 mls/hr IVPB Q8H [facility] Rx#: [id number] Sodium Chloride 0.9% 1, 1200 000 ml @ 100 mls/hr IV . Q10H [facility] Rx#:[id number] Other: Voiding Method Diaper Diaper Diaper Incontinent # Voids 1 # Bowel Movements 1 - Exam GENERAL DESCRIPTION: Middle-age female lying in bed in no distress RESPIRATORY SYSTEM: Unlabored breathing , decreased breath sounds at bases HEART: S1 S2 regular rate and rhythm , ABDOMEN: Soft , no tenderness EXTREMITIES: No edema feet - Labs CBC & Chem 7: 12/07/23 07:34 12/07/23 07:34 Labs: Abnormal Lab Results - Last 24 Hours (Table) 12/07/23 Range/Units 07:34 RBC 3.85 L (4.10-5.20) X 10*6/uL Hgb 10.9 L (12.0-15.0) g/dL Hct 34.2 L (37.2-46.3) % MCHC 31.9 L (32.0-37.0) g/dL Microbiology - Last 24 Hours (Table) 12/02/23 17:00 Blood Culture - Preliminary Blood Assessment and Plan (1) Right lower lobe pneumonia Current Visit: Yes Status: Acute Code(s): J18.9 - PNEUMONIA, UNSPECIFIED ORGANISM SNOMED Code(s): 381798908 Plan: 1patient presented hospital with sepsis in this patient who did have a fever elevated white count right-sided pneumonia in this patient significant vomiting high clinical suspicion for aspiration pneumonia rather than community-acquired pneumonia 2-sputum not collected procalcitonin is pending 3-patient has clinical improvement not running any fever white count normal, patient antibiotic switched to Augmentin to continue for about a week on discharge Mother at the bedside questions answered Dictation was produced using [employer] dictation software. please excuse any grammatical, word or spelling errors. Time with Patient: Less than 30
[2023-12-07] MEDS ORDERED: AMOXIC-POT CLAV 875-125MG 1 EACH TAB PO SCH (21:00)
== END 2023-12-07 18:44 | disposition home or self-care (01) | DRG 720 ==
LOC: EEVIPCON 14:19 → EC 14:19 → 3SCARD 21:21 → 4SSUR 21:39
PROVIDERS: ADMIT Internal Medicine; ATTEND Internal Medicine
DX: A41.9 Sepsis, unspecified organism (principal); E03.9 Hypothyroidism, unspecified; Z28.311 Partially vaccinated for COVID-19; Z28.21 Immunization not carried out because of patient refusal; R74.01 Elevation of levels of liver transaminase levels; F79 Unspecified intellectual disabilities; N39.0 Urinary tract infection, site not specified; G93.41 Metabolic encephalopathy; R45.1 Restlessness and agitation; Z71.3 Dietary counseling and surveillance; J42 Unspecified chronic bronchitis; J69.0 Pneumonitis due to inhalation of food and vomit; R09.02 Hypoxemia; Z78.1 Physical restraint status; Z66 Do not resuscitate; Z79.890 Hormone replacement therapy; Z87.440 Personal history of urinary (tract) infections; Z11.52 Encounter for screening for COVID-19; Z79.899 Other long term (current) drug therapy
CPT/HCPCS: 36415; 51701; 71045; 71046; 71275; 80048; 80053; 80076; 81001; 81025; 82550; 83605; 83735; 83880; 84145; 84484; 84703; 85025; 85027; 85379; 87040; 87449; 87636; 93005; 94640; 96365; 96366; 96375; 99285

== ENCOUNTER 2024-01-17 14:22 | Emergency (ER) | payer OTHER ==
--- NOTE | 2024-01-17 14:53 | ED ---
General Adult HPI - General Source: patient, family, RN notes reviewed, Caregiver Mode of arrival: wheelchair Limitations: altered mental status, physical limitation <Narayan Rojo - Last Filed: 01/17/24 14:52> <Anastasiia Kearns - Last Filed: 01/18/24 15:57> - General Stated complaint: finger injury Time Seen by Provider: 01/17/24 14:41 - History of Present Illness Initial comments: Quick [id number] female presents emergency department evaluation of possible finger injury then noticed some redness, swelling possible deformity right hand fourth digit. (Narayan Rojo) 38-year-old female brought to the emergency department with redness and deformity to the right ring finger. 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 Patient does have frequent falls due to weakness. She was recently hospitalized for pneumonia. Mother states that since he has been home she has been using a wheelchair. She noticed that the finger was becoming more red and deformed and therefore today decided to get it evaluated. The patient is unable to voice any discomfort due to her development al delay. Because of this the HPI is limited (Anastasiia Kearns) - Related Data Home Medications Medication Instructions Recorded Confirmed Levothyroxine Sodium [Synthroid] 75 mcg PO DAILY 12/03/23 12/03/23 Previous Rx's Medication Instructions Recorded Amoxic-Pot Clav 875-125Mg 1 each PO Q12HR 7 Days #14 tab 12/07/23 [Augmentin 875-125] Famotidine [Pepcid] 20 mg PO BID tab 12/07/23 Allergies Allergy/AdvReac Type Severity Reaction Status Date / Time No Known Allergies Allergy Verified 01/17/24 14:55 Review of Systems ROS Other: All systems not noted in ROS Statement are negative. <Narayan Rojo - Last Filed: 01/17/24 14:52> ROS Other: All systems not noted in ROS Statement are negative. <Anastasiia Kearns - Last Filed: 01/18/24 15:57> ROS Statement: Those systems with pertinent positive or pertinent negative responses have been documented in the HPI. Past Medical History Past Medical History: Thyroid Disorder Additional Past Medical History / Comment(s): delep[mentally delayed, chronic bronchitis, hypothyroid History of Any Multi-Drug Resistant Organisms: None Reported Additional Past Surgical History / Comment(s): oral surgery Past Anesthesia/Blood Transfusion Reactions: No Reported Reaction Additional Psychological History / Comment(s): developmentally delayed Smoking Status: Never smoker - Past Family History Mother Family Medical History: No Reported History <Narayan Rojo - Last Filed: 01/17/24 14:52> General Exam <Narayan Rojo - Last Filed: 01/17/24 14:52> Extremities exam: Present: other (Redness to the right fourth digit. There is some ulnar deviation of the distal phalanx) <Anastasiia Kearns - Last Filed: 01/18/24 15:57> - General Exam Comments Initial Comments: Visual Physical Exam Vital signs reviewed General: Well-appearing, nontoxic, no acute distress. Head: Normocephalic, atraumatic Eyes: PERRLA, EOMI ENT: Airway patent Chest: Nonlabored breathing Skin: No visual rash, normal skin tone Neuro: Alert and oriented 3 Musculoskeletal: No gross abnormalities (Narayan Rojo) Course Vital Signs 01/17/24 01/17/24 14:51 17:31 Temperature 98 F 98.1 F Pulse Rate 87 90 Respiratory 18 20 Rate Blood Pressure 118/81 120/78 O2 Sat by Pulse 96 97 Oximetry Medical Decision Making <Narayan Rojo - Last Filed: 01/17/24 14:52> <Anastasiia Kearns - Last Filed: 01/18/24 15:57> - Medical Decision Making I completed the quick note portion of this chart signed Narayan Rojo PA-C (Narayan Rojo) Was pt. sent in by a medical professional or institution (ERICKA Cedillo, CLAIM REPRESENTATIVE, urgent care, hospital, or shelter...) When possible be specific @ -No Did you speak to anyone other than the patient for history (EMS, parent, family, police, friend...)? What history was obtained from this source @Spoke with the patient's guardian Did you review nursing and triage notes (agree or disagree)? Why? @ -I reviewed and agree with nursing and triage notes Were old charts reviewed (outside hosp., previous admission, EMS record, old EKG, old radiological studies, urgent care reports/EKG's, shelter records)? Report findings @ -No old charts were reviewed Differential Diagnosis (chest pain, altered mental status, abdominal pain women, abdominal pain men, vaginal bleeding, weakness, fever, dyspnea, syncope, headache, dizziness, GI bleed, back pain, seizure, CVA, palpatations, mental health, musculoskeletal)? @ -Differential Musculoskeletal Muscular strain, contusion, ligament sprain, fracture, arthritis, septic arthritis, bursitis, cellulitis, muscle spasm, nerve compression, DVT, arterial occlusion, herpes zoster, electrolyte abnormality, tumor.... This is not meant to be in all inclusive list EKG interpreted by me (3pts min.). @ -Not done X-rays interpreted by me (1pt min.). @ -Demonstrates subacute fracture of the distal phalanx right fourth digit CT interpreted by me (1pt min.). @ -None done U/S interpreted by me (1pt. min.). @ -None done What testing was considered but not performed or refused? (CT, X-rays, U/S, labs)? Why? @ -None What meds were considered but not given or refused? Why? @ -None Did you discuss the management of the patient with other professionals (professionals i.e. , PA, CLAIM REPRESENTATIVE, lab, RT, psych nurse, social media job titles, furnace reliner, teacher, investment officer, showcase maker)? Give summary @ -No Was smoking cessation discussed for >3mins.? @ -No Was critical care preformed (if so, how long)? @ -No Were there social determinants of health that impacted care today? How? (Homelessness, low income, unemployed, alcoholism, drug addiction, transportation, low edu. Level, literacy, decrease access to med. care, correction, rehab)? @ -Patient has developmental delay Was there de-escalation of care discussed even if they declined (Discuss DNR or withdrawal of care, Hospice)? DNR status @ -No What co-morbidities impacted this encounter? (DM, HTN, Smoking, COPD, CAD, Cancer, CVA, ARF, Chemo, Hep., AIDS, mental health diagnosis, sleep apnea, morbid obesity)? @ -Developmental delay Was patient admitted / discharged? Hospital course, mention meds given and route, prescriptions, significant lab abnormalities, going to OR and other pertinent info. @ -Upon arrival patient was seen and evaluated in room 30. Thorough history and physical exam was performed. X-ray was performed which service demonstrated a subacute fracture. At this time I and I am able to reduce the fracture due to partial healing. Patient was placed in a baseball splint. She will follow- up with orthopedics for further management return for any new or worsening symptoms. Recommend alternating Motrin and Tylenol for pain. Guardian was aware of the plan and patient discharged home in stable condition Undiagnosed new problem with uncertain prognosis? @ -No Drug Therapy requiring intensive monitoring for toxicity (Heparin, Nitro, Insulin, Cardizem)? @ -No Were any procedures done? @ -No Diagnosis/symptom? @ -Subacute fracture right fourth digit distal phalanx Acute, or Chronic, or Acute on Chronic? @ -Subacute Uncomplicated (without systemic symptoms) or Complicated (systemic symptoms)? @ -Uncomplicated Side effects of treatment? @ -No Exacerbation, Progression, or Severe Exacerbation? @ -No Poses a threat to life or bodily function? How? (Chest pain, [place], [place], pneumonia, PE, COPD, DKA, ARF, appy, cholecystitis, CVA, Diverticulitis, Homicidal, Suicidal, threat to staff... and all critical care pts) @ -No (Anastasiia Kearns) Disposition <Narayan Rojo - Last Filed: 01/17/24 14:52> Is patient prescribed a controlled substance at d/c from ED?: No Time of Disposition: 17:07 <Anastasiia Kearns - Last Filed: 01/18/24 15:57> Clinical Impression: Finger fracture, right Disposition: HOME SELF-CARE Condition: Stable Instructions (If sedation given, give patient instructions): Finger Fracture ( ED) Additional Instructions: Wear the brace if possible. Follow up with the orthopedic doctor and return for any new or worsening symptoms. Take Tylenol for any pain. Referrals: Genevieve Brooks MD [Primary Care Provider] - 1-2 days Ken Arroyo DO [Doctor of Osteopathic Medicine] - 1-2 days
--- NOTE | 2024-01-17 16:08 | XR ---
EXAMINATION TYPE: XR finger RT DATE OF EXAM: 01/17/2024 COMPARISON: NONE HISTORY: 38-year-old female for finger pain, redness, unknown injury TECHNIQUE: 3 views coned down right ring (4th) finger FINDINGS: There is ulnar-sided angulation deformity at the fourth PIP joint. There is some cortical i rregularity and lucency at the level of the middle phalangeal neck and some soft tissue swelling. Fra cture lucency is not well defined. IMPRESSION: Correlate for possible subacute, incompletely healed fracture fourth middle phalangeal neck with impa ction and ulnar angulation. Secondary finger deformity. Soft tissue swelling. Orthopedic follow-up re commended.
[2024-01-17 18:07] VITALS: BP 120/78; PULSE 90; RESP 20; TEMP 98.1
== END 2024-01-17 17:31 | disposition home or self-care (01) ==
LOC: EC 14:22
DX: S62.634A Displaced fracture of distal phalanx of right ring finger, initial encounter for closed fracture (principal); X58.XXXA Exposure to other specified factors, initial encounter
CPT/HCPCS: 99283